=== PATIENT | female | born 1965 | race Caucasian/White ===

== ENCOUNTER 2019-07-26 06:14 | Day surgery (SDC) | payer OTHER, SELFPAY ==
[2019-07-21 11:09] VITALS: BMI 51.9
[2019-07-22 13:01] VITALS: BMI 49.4
[2019-07-26 06:31] VITALS: BP 140/103; PULSE 95; RESP 18; TEMP 36.3; O2SAT 96
[2019-07-26] MEDS: sodium chloride 0.9% 1,000 ML 30 ML IV (07:02)
--- NOTE | 2019-07-26 07:36 | P.ANESASSM_ITS ---
Pre-Anesthetic Assessment Pre-Anesthetic Assessment: Height/Weight: Height 1.57 m Weight 122.47 kg Temp Pulse Resp BP Pulse Ox 97.4 F L 95 18 140/103 96 07/26/19 06:31 07/26/19 06:31 07/26/19 06:31 07/26/19 06:31 07/26/19 06:31 Proposed Procedure: Operation Date: 07/26/19 07:35 Proposed Procedures p Colonoscopy 68214 Z86.010(Not Applicable) - Eder Cole MD Last intake: Intake Last Liquid Date 07/25/19 Last Liquid Time 23:30 Last Solid Date 07/24/19 Social: Social History: No alcohol and No tobacco Exam: Pre-Anes Outpt Exam: alert, oriented x 3, clear to auscultation bilaterally and regular rate & rhythm Airway: Submandibular: WNL Cervical ROM: WNL MP: 2 Dentition: Other (very poor dentation) History/ROS: No significant history except as noted Pulmonary: Pulmonary: PANIAGUA and Sleep apnea CV/HEM: CV/HEM: HTN : Comments: stones Hepatic: Hepatic: None reported GI: GI: None reported Comments: ladarius dz Metabolic: Metabolic: Morbid obesity and Thyroid Musc/skel: Musc/skel: Lower Back Pain and OA/DJD Neuropsych: Neuropsych: None reported Anesthetic Plan: ASA status: 3 Anesthesia: Anesthesia Evaluation and MAC Risk of > 500 ml blood loss (7ml/kg in children): No Meds/Allergies Current Medications: Current Medications Generic Name Dose Route Start Last Admin Trade Name Freq PRN Reason Stop Dose Admin Sodium Chloride 1,000 mls @ 30 ml s/hr 07/26/19 06:30 07/26/19 07:02 Sodium Chloride 0.9% IV 07/27/19 06:29 30 mls/hr .Q24H LUKASZ Administration PFSH Anesthesia PFSH: Medical History Cowdens disease Diverticulitis History of colon polyps Hypertension Hypothyroidism Surgical History History of 2 sections History of bilateral mastectomy History of colonoscopy (~04/2014) History of esophagogastroduodenoscopy (EGD) History of laparoscopic cholecystectomy History of thyroidectomy, total History of tonsillectomy History of total hysterectomy with bilateral salpingo-oophorectomy (BSO) Family History Family/Other Diabetes Denies family history of Anesthesia complication Bleeding disorder Social History Smoking and tobacco status: never smoked Second hand smoke exposure: No Alcohol intake: never Adopted: No Caregiver/support person: No Lives independently: Yes Household members: none Housing: Apartment Marital status: Single Current occupational exposures/hazards: No Pets and animals: No History of recent travel: No Sexually active: No Current gender identity: Female Agata/Yazidism: Yazidi Special agata needs: No Agree to transfusion: No Financial difficulty paying for basics: Not Applicable Data Anesthesia Cardiac Studies: No Data to Display
--- NOTE | 2019-07-26 07:57 | W.PM.OPSFHP ---
Same Day Surgery H&P Indication for Procedure/HPI DATE OF PROCEDURE: July 26, 2019 CHIEF COMPLAINT/INDICATIONFOR SURGICAL PROCEDURE: history of colon polyps PREOP DIAGNOSIS: colon polyps PLANNED PROCEDRUE: Operation Date: 07/26/19 07:35 Proposed Procedures p Colonoscopy 83561 Z86.010(Not Applicable) - Eder Cole MD Medications/Allergies* Home Medications Medication Instructions Recorded Confirmed Type gabapentin 300 mg capsule 300 mg PO BEDTIME 06/07/19 07/26/19 History levothyroxine 200 mcg capsule 200 mcg PO DAILY 06/07/19 07/26/19 History lisinopril 10 mg tablet 5 mg PO DAILY 06/07/19 07/26/19 History vitamin [id number] B1 100 mg-1 1 ml IM Q7D 06/07/19 07/26/19 History mg/mL intramuscular solution naproxen 500 mg PO DAILY PRN 07/21/19 07/26/19 History cyclobenzaprine 10 mg PO TID PRN 07/25/19 07/26/19 History Allergies/Adverse Reactions Allergy/AdvReac Type Severity Reaction Status Date / Time No Known Allergies Allergy Verified 06/07/19 15:15 Current Medications: Generic Name Dose Route Start Last Admin Trade Name Freq PRN Reason Stop Dose Admin Sodium Chloride 1,000 mls @ 30 mls/hr 07/26/19 06:30 07/26/19 07:02 Sodium Chloride 0.9% IV 07/27/19 06:29 30 mls/hr .Q24H LUKASZ Administration Pertinent History/Comorbid Conditions* Medical History (Updated 06/07/19 @ 15:28 by Eder Cole MD) Cowdens disease Diverticulitis History of colon polyps Hypertension Hypothyroidism Surgical History (Updated 06/07/19 @ 15:28 by Eder Cole MD) History of 2 sections History of bilateral mastectomy History of colonoscopy (~04/2014) History of esophagogastroduodenoscopy (EGD) History of laparoscopic cholecystectomy History of thyroidectomy, total History of tonsillectomy History of total hysterectomy with bilateral salpingo-oophorectomy (BSO) Family History (Updated 06/07/19 @ 15:20 by Diana Tobias RN) Diabetes Family/Other Denies family history of Anesthesia complication Bleeding disorder Social History Smoking and tobacco status: never smoked Second hand smoke exposure: No Alcohol intake: never Adopted: No Caregiver/support person: No Lives independently: Yes Household members: none Housing: Apartment Marital status: Single Current occupational exposures/hazards: No Pets and animals: No History of recent travel: No Sexually active: No Current gender identity: Female Agata/Zoroastrianism: Tenriism Special agata needs: No Agree to transfusion: No Financial difficulty paying for basics: Not Applicable Pertinent Exam Findings alert, oriented x 3 and regular rate & rhythm Recommendations Surgery/Procedure today Coding Level of Care Code Acute Parent Partner for Mayi Han
[2019-07-26 09:44] VITALS: BP 126/84; PULSE 99; RESP 16; TEMP 36.4; O2SAT 95
[2019-07-26 09:58] VITALS: BP 119/76; PULSE 86; RESP 18; O2SAT 95
== END 2019-07-26 10:30 | disposition home or self-care (01) ==
PROVIDERS: PCP Nurse Practitioner Family; Visit Provider Surgery
PROC: 0DJD8ZZ Inspection of Lower Intestinal Tract, Via Natural or Artificial Opening Endoscopic (ICD-10-PCS; CPT 45378; principal; 2019-07-26 07:30)
DX: K57.30 Diverticulosis of large intestine without perforation or abscess without bleeding (principal); D12.2 Benign neoplasm of ascending colon; D12.4 Benign neoplasm of descending colon; D12.5 Benign neoplasm of sigmoid colon; D12.3 Benign neoplasm of transverse colon; Z86.010 Personal history of colon polyps; I10 Essential (primary) hypertension; E03.9 Hypothyroidism, unspecified; E66.01 Morbid (severe) obesity due to excess calories; Z68.42 Body mass index [BMI] 45.0-49.9, adult; M19.90 Unspecified osteoarthritis, unspecified site; G47.30 Sleep apnea, unspecified
CPT/HCPCS: 45380; 45385; 12345; 88305; J2704; J7030

== ENCOUNTER → 2021-01-23 15:09 | Outpatient (BNVA) | payer BC, SELFPAY | PROVIDERS: PCP Nurse Practitioner Family; Visit Provider Nurse Practitioner | DX: M79.671 Pain in right foot (principal) | CPT/HCPCS: 73630 ==

== ENCOUNTER → 2021-02-04 10:02 | Outpatient (BNVA) | payer BC, SELFPAY | PROVIDERS: PCP Nurse Practitioner Family; Referring Provider Internal Medicine; Visit Provider Internal Medicine | DX: Q85.8 Other phakomatoses, not elsewhere classified (principal); E83.52 Hypercalcemia; E03.9 Hypothyroidism, unspecified; E04.1 Nontoxic single thyroid nodule | CPT/HCPCS: 99204 ==

== ENCOUNTER 2021-02-18 15:03 | Outpatient (CLI) | payer BC, SELFPAY ==
--- NOTE | 2021-02-18 | CT_ITS ---
WS: [id number] CT LUMBAR SPINE TECHNIQUE: Noncontrast CT of the lumbar spine with coronal and sagittal reformatted images.Some image s are limited due to beam hardening artifact CLINICAL INFORMATION: LBP COMPARISON: CT January 20, 2017 DLP: [id number] scans at [facility] use at least one of these dose optimization techniques: automated e xposure control; mA and/or kV adjustment per patient size (includes targeted exams where dose is matc hed to clinical indication); or iterative reconstruction. FINDINGS: Mild lumbar curve. Disc space narrowing worse at L2-L3 L3-L4 and L5-S1 vacuum disc phenomenon. Chroni c compression fracture with anterior wedging and endplate Schmorl's node L1 is unchanged since 2017. Disc space disease has progressed since 2017. L1-L2: Mild disc osteophytic ridging. Slight narrowing of the right subarticular recess. Foramen are patent. Mild facet arthropathy. L2-L3: Disc desiccation with vacuum disc phenomenon. Mild annular bulging with slight effacement of t he ventral thecal sac. Impingement on the left subarticular recess. Mild left and no significant righ t foraminal narrowing. Mild facet arthropathy. L3-L4: Disc desiccation with vacuum disc phenomenon. Mild disc bulging with mild central canal stenos is. Slight narrowing of the subarticular recess bilaterally. Left foraminal protrusion with moderate left foraminal narrowing. Right foramen is patent. Mild facet arthropathy. L4-L5: Mild disc bulging and osteophytic ridging. Moderate facet arthropathy. Mild central canal sten osis. Mild bilateral foraminal narrowing. This is slightly worse in the left. Ligamentum flavum hyper trophy. L5-S1: Central disc osteophyte protrusion slightly contacts the traversing S1 nerve roots bilaterally . Mild bilateral foraminal narrowing. Spinal canal is patent. Mild facet arthropathy. Right renal cyst. Visualized pelvic bony structures: Normal. Paravertebral soft tissues: Normal. CT/CT lumbar spine wo con* [id number] IMPRESSION: 1. Degenerative disc disease has progressed compared to 2017. This is progress ed at L2-3 L3-4 and L5-S1. 2. Chronic compression anterior wedging at L1 is unchanged. 3. Shallow right pericentral protrusion L1-L2 slightly impinges the right suba rticular recess and traversing right L2 nerve root. 4. Mild central canal stenosis L3-L4 L4-L5 due to mild disc bulging in combina tion with facet arthropathy ligamentum flavum flavum hypertrophy. 5. Shallow central disc osteophyte complex L5-S1 slightly contacts the herb ing S1 nerve roots bilaterally. 6. Shallow left subarticular protrusion L2-3 impinges the left subarticular re cess and traversing left L3 nerve root. Mild to left L2-3 foraminal narrowing. 7. Mild to moderate bilateral foraminal narrowing left L3-4 and bilateral L4-5 with small bilateral foraminal protrusions.
== END 2021-02-18 15:04 | disposition home or self-care (01) ==
PROVIDERS: PCP Nurse Practitioner; Visit Provider Nurse Practitioner
DX: M51.36 Other intervertebral disc degeneration, lumbar region (principal); M51.37 Other intervertebral disc degeneration, lumbosacral region; M48.56XA Collapsed vertebra, not elsewhere classified, lumbar region, initial encounter for fracture; M51.26 Other intervertebral disc displacement, lumbar region; M48.061 Spinal stenosis, lumbar region without neurogenic claudication; M25.78 Osteophyte, vertebrae
CPT/HCPCS: 72131

== ENCOUNTER 2021-03-07 12:51 | Outpatient (CLI) | payer BC, SELFPAY ==
--- NOTE | 2021-03-07 12:55 | XR_ITS ---
WS: [id number] LUMBAR SPINE FLEXION AND EXTENSION TECHNIQUE: 3 views of the lumbar spine: Lateral neutral, flexion, and extension views. CLINICAL INFORMATION: VERTEBROGENIC LOW BACK PAIN COMPARISON: None. FINDINGS: Slight retrolisthesis L1 on L2 and L2 on L3. Chronic anterior wedging at L1. Disc space narrowing wor se at L4-5 and L5-S1. No instability on flexion-extension. Moderate facet arthropathy L5-S1. Aortic c alcification. XR/XR lumbar spine f/e only [id number] IMPRESSION: 1. Slight retrolisthesis L1 on L2 and L2 on L3. 2. No instability on flexion-extension. 3. Disc space narrowing worse at L4-L5 and L5-S1. 4. Chronic anterior wedging at L1.
== END 2021-03-07 12:52 | disposition home or self-care (01) ==
PROVIDERS: PCP Nurse Practitioner; Visit Provider Nurse Practitioner
DX: M48.56XA Collapsed vertebra, not elsewhere classified, lumbar region, initial encounter for fracture (principal)
CPT/HCPCS: 72120

== ENCOUNTER 2021-06-07 11:40 | Outpatient (CLI) | payer BC, SELFPAY ==
--- NOTE | 2021-06-07 08:00 | US_ITS ---
WS: [id number] THYROID ULTRASOUND HISTORY: NODULE, prior thyroidectomy. COMPARISON: None available. No thyroid tissue mass is again noted in the thyroid bed. There are no solid or cystic masses. No lym phadenopathy. Submandibular glands are noted and normal. US/US thyroid [id number] IMPRESSION: Status post thyroidectomy. No recurrent or residual mass in the thyroid bed. No adenopathy.
== END 2021-06-07 11:41 | disposition home or self-care (01) ==
PROVIDERS: Visit Provider Internal Medicine
DX: E04.1 Nontoxic single thyroid nodule (principal); E89.0 Postprocedural hypothyroidism
CPT/HCPCS: 76536

== ENCOUNTER 2021-08-28 08:43 | Outpatient (CLI) | payer BC, SELFPAY ==
--- NOTE | 2021-08-28 08:45 | MR_ITS ---
WS: [id number] MRI CERVICAL SPINE NONCONTRAST TECHNIQUE: Sagittal T1, T2 and STIR imaging. Axial T2, gradient, and fiesta imaging. CLINICAL INFORMATION: pain COMPARISON: Outside CT cervical spine June 17, 2021 FINDINGS: Straightening of the normal cervical lordosis. Cervical alignment is unchanged from the outside CT. C ord signal is normal. Disc osteophyte complex worse at C5-C6 with slight impingement on the LEFT vent ral cervical cord and mild central canal stenosis. Incidental hemangioma T2 vertebral body. C2-C3: Normal. C3-C4: No significant disc bulging. Mild RIGHT foraminal narrowing. Mild facet arthropathy. Spinal ca nal is patent. C4-C5: No significant disc bulging. Osteophytic ridging. Mild RIGHT and no significant LEFT foraminal narrowing. Mild facet arthropathy. Spinal canal is patent. C5-C6: Shallow LEFT pericentral disc protrusion with slight indentation LEFT ventral cervical cord. M ild central canal stenosis. Mild bilateral foraminal narrowing. Mild facet arthropathy. C6-C7: RIGHT pericentral disc protrusion with slight contact RIGHT ventral cervical cord. Mild centra l canal stenosis. Foramen are patent. Mild facet arthropathy. C7-T1: Mild LEFT foraminal narrowing.. Spinal canal is patent. Mild facet arthropathy. Visualized brain stem structures: Cerebellar tonsillar ectopia. Prevertebral soft tissues: Normal. MR/MR cervical spin wo con* [id number] IMPRESSION: 1. Straightening of the normal cervical lordosis. Cord signal is normal. 2. LEFT pericentral disc osteophyte protrusion C5-C6 with mild central canal s tenosis. This is unchanged since the outside CT. 3. Tiny RIGHT pericentral disc protrusion C6-C7 with slight indentation RIGHT ventral cervical cord and mild central canal stenosis. 4. Mild bony foraminal narrowing worse at RIGHT C4-C5, LEFT C5-C6, and LEFT C 7-T1. 5. Hemangioma T2 vertebral body.
== END 2021-08-28 08:44 | disposition home or self-care (01) ==
PROVIDERS: Visit Provider Orthopaedic Surgery
DX: M50.222 Other cervical disc displacement at C5-C6 level (principal); M50.223 Other cervical disc displacement at C6-C7 level
CPT/HCPCS: 72141

== ENCOUNTER 2022-04-18 06:25 | Outpatient (CLI) | payer BC, SELFPAY ==
--- NOTE | 2022-04-18 06:30 | USCV_ITS ---
Tamika Caicedo Age: 57 Gender: F : 1965 Exam Date: 04/18/2022 06:39 Ordering Phys: Edgardo Rodriguez M.D ([email or web address]) Technologist: Exam [place] [facility] [place]ication: CHEST PAIN AND SHORTNESS OF BREATH BP: 145 / 80 HR: 81 Rhythm: Sinus Technical Quality: Adequate MEASUREMENTS (Male / Female) Normal Values 2D ECHO LV Diastolic Diameter PLAX 4.9 cm 4.2 - 5.9 / 3.9 - 5.3 cm LV Systolic Diameter PLAX 2.7 cm IVS Diastolic Thickness 1.0 cm 0.6 - 1.0 / 0.6 - 0.9 cm IVS Systolic Thickness 1.4 cm LVPW Diastolic Thickness 1.2 cm 0.6 - 1.0 / 0.6 - 0.9 cm LVPW Systolic Thickness 1.3 cm LVOT Diameter 2.1 cm LV Ejection Fraction 2D Teich 77.0 % LV Ejection Fraction MOD 2C 82.1 % LV Ejection Fraction 2C AL 81.9 % LA Diameter 4.4 cm Aorta at Sinotubular Diameter 2.6 cm IVC Diameter 1.5 cm M-MODE Aortic Annulus Diameter 3.3 cm LA Ao Ratio MM 1.4 MV E Point Septal Separation 0.9 cm DOPPLER AV Peak Velocity 172.0 cm/s LVOT Peak Velocity 123.0 cm/s AV Area Cont Eq vti 2.2 cm squared AV Area Cont Eq pk 2.4 cm squared MV Area PHT 3.1 cm squared Mitral E to A Ratio 1.0 MV E' Velocity 43.0 cm/s Mitral E to MV E' Ratio 8.0 Mitral E to LV E' Lateral Ratio 8.9 Mitral E to LV E' Septal Ratio 7.3 TR Peak Velocity 285.0 cm/s TR Peak Gradient 32.5 mmHg TV Peak E Velocity 102.0 cm/s Right Atrial Pressure 3.0 mmHg Pulmonary Artery Systolic Pressu 35.5 mmHg RV Acceleration Time 0.2 s FINDINGS Left Ventricle Normal left ventricular size, systolic function and wall thickness, with no regional wall motion abnormalities. Left ventricular ejection fraction is estimated at 60 %. Normal diastolic function. Right Ventricle Normal right ventricular size and systolic function. Right ventricular systolic pressure 35.5 mmHg. Right Atrium Normal right atrial size. Left Atrium Mildly increased left atrial size. Mitral Valve Structurally normal mitral valve. No mitral valve stenosis. Trace mitral valve regurgitation. Aortic Valve Structurally normal trileaflet aortic valve. No aortic valve stenosis. No aortic valve regurgitation. Tricuspid Valve Structurally normal tricuspid valve. No tricuspid valve stenosis. Trace tricuspid valve regurgitation. Pulmonic Valve Structurally normal pulmonic valve. No pulmonary valve stenosis. Trace pulmonary valve regurgitation. Pericardium No pericardial effusion. Prominent epicardial fat. Aorta Normal size aortic root and proximal ascending aorta. IVC Normal IVC dimension with >50% respiratory change of the inferior vena cava. CONCLUSIONS 1. Normal left ventricular size, systolic function and wall thickness, with no regional wall motion abnormalities. Left ventricular ejection fraction is estimated at 60 %. Normal diastolic function. 2. No significant valvular abnormality. 3. No significant change when compared to [facility] dated 07/26/2015. Nesha Jenkins MD (Electronically Signed) Final Date: 18 April 2022 15:17 S
== END 2022-04-18 06:26 | disposition home or self-care (01) ==
LOC: RAD 06:27
PROVIDERS: PCP Family Medicine; Visit Provider Internal Medicine
DX: R06.02 Shortness of breath (principal); R07.9 Chest pain, unspecified
CPT/HCPCS: 93306

== ENCOUNTER 2022-05-19 06:23 | Outpatient (CLI) | payer BC, SELFPAY ==
[2022-05-19 06:42] VITALS: BMI 50.8
--- NOTE | 2022-05-19 07:17 | ECG_ITS ---
[facility] Test Date: 2022-05-19 Pat Name: Tamika Caicedo Department: Room: Gender: Female Director Radio: : 1965 Requested By: Edgardo Rodriguez Order Number: [id number] Lobo MD: Laury Posey M.D. Interpretive Statements NAME OF STUDY: LEXISCAN SESTAMIBI STRESS TEST INDICATION: Chest Pain, PROCEDURE: At the baseline, the EKG revealed normal sinus rhythm with a poor R wave progression. Diffuse nonspecific T wave changes. The baseline heart was 79 bpm with a blood pressue of 128/101 mm of Hg Lexiscan was infused over a period of 20 seconds. A total of 0.4 milligrams of Lexiscan was infused. The stress phase was continued for a total of 5 minutes. Heart rate at the end of the stress phase was 87 bpm with a blood pressure 130/96 mm of Hg. The EKG at the peak infusion revealed no significant changes. Sestamibi was injected 20 seconds after the Lexiscan infusion. Heart rate at the end of the recovery phase was 84 bpm with a blood pressure of 139/85 mm of Hg. CONCLUSION: 1. No significant EKG changes with the LexiScan infusion 2. No LexiScan induced chest pain or cardiac arrhythmia 3. Normal blood pressure and heart rate response 4. Sestamibi/sestamibi perfusion scan pending; see separate report. Electronically Signed On 05-21-2022 0:25:35 CLAIMS ANALYST by Laury Posey M.D. [email or web address]
--- NOTE | 2022-05-19 07:18 | NMCV_ITS ---
NM pamela perf SPECT r/s* [id number] Tamika Caicedo Age: 57 Gender: F : 1965 Exam Date: 05/19/2022 07:47 Ordering Phys: Edgardo Rodriguez M.D ([email or web address]) Technologist: ROSEMARY Timmons Exam Location: [facility] Indications: CHEST PAIN STRESS TEST [facility] IMAGE PROTOCOL Rest/Stress 1 Lexiscan Day Radiopharmaceutical Dose (mCi) Administration Site Administered by Rest: Tc-99m 10.8 IV ROSEMARY Ceballos Sestamibi Stress:Tc-99m 33.0 IV ROSEMARY Ceballos Sestamibi Rest: 19-May-2022 60 Discovery 630 Stress: 19-May-2022 30 Discovery 630 0.4mg Lexiscan. Images obtained in supine and prone position. SPECT RESULTS Technical Quality: Excellent Raw Data Analysis: Breast attenuation Image Corrections: No attenuation or motion correction applied Summed Stress Score: 3 Summed Rest Score: 0 Summed Difference Score: 3 PERFUSION FINDINGS A small area of moderately decreased tracer uptake was noted in the mid anterior and anterolateral region with a significant reversibility in the supine position. However with the prone imaging no significant perfusion abnormalities were noted FUNCTIONAL RESULTS (calculated via Gated SPECT) Stress Image LV EF (%): 76 Stress EDV (mL):96 TID: 1.2 Stress ESV (mL):23 FUNCTIONAL FINDINGS: Segmental wall motion analysis revealing no gross wall motion abnormalities IMPRESSIONS 1. Myocardial perfusion imaging revealing a small area of reversible defect in the mid anterior and anterolateral region suggesting ischemia in the distribution of the left anterior descending artery. However because of the inconsistency with the prone imaging, the reliability is questionable. Elevated transient ischemic dilatation ratio may suggest endocardial ischemia. However the positive predictive value of this finding is low. Clinical correlation is recommended 2. Normal LV ejection fraction 76%. 3. LV wall motion analysis revealing no gross wall motion abnormalities. 4. Normal LV volume No similar previous studies are available for comparison Dr Laury Posey MD [facility] (Electronically Signed) Final Date: 19 May 2022 17:21 S
[2022-05-19] MEDS: regadenoson 0.4 Mg/5 ml Syringe IVP (08:59)
[2022-05-19] MEDS: ondansetron 2 mg/ML SDV 2 mL 4 MG IVP (08:59)
[2022-05-19 09:01] VITALS: BP 139/85; PULSE 84
== END 2022-05-19 06:24 | disposition home or self-care (01) ==
LOC: CDL 06:28
PROVIDERS: PCP Nurse Practitioner Family; Visit Provider Internal Medicine
DX: R07.9 Chest pain, unspecified (principal)
CPT/HCPCS: 36415; 78452; 93017; 96374; 96375; A9500; J2405; J2785

== ENCOUNTER 2022-08-04 10:09 | Outpatient (CLI) | payer BC, SELFPAY ==
[2022-08-04 10:34] LABS: Basophils % 0.7 %; Eosinophils # 0.4 10^3/uL (0.0-0.8); Eosinophils % 6.8 %; Hematocrit 44.4 % (37.0-47.0); Lymphocytes # 1.4 10^3/uL (0.8-4.8); Lymphocytes % 23.9 %; Mean Corpuscular HGB Conc 31.5 g/dL (30.0-36.0); Mean Corpuscular Hemoglobin 30.2 pg (28.0-34.0); Mean Corpuscular Volume 95.9 fl (81-99); Mean Platelet Volume 9.8 fL (7.4-10.4); Monocytes # 0.4 10^3/uL (0.2-0.9); Monocytes % 7.2 %; Neutrophils # 3.66 10^3/uL (1.8-7.7); Neutrophils % 61.1 %; Nucleated Red Blood Cells % 0 %; Platelet Count 236 10^3/cmm (130-400); Red Blood Count 4.63 10^6/uL (4.1-5.3); Red Cell Distribution Width 12.9 % (12.1-15.1)
[2022-08-04 10:45] LABS: INR 0.95 (0.83-1.21)
[2022-08-04 10:51] LABS: Anion Gap 15.6 (5-19); Blood Urea Nitrogen 21 mg/dL (6-20); Calcium 9.3 mg/dL (8.5-10.5); Carbon Dioxide 25 mmol/L (22-29); Chloride 107 mmol/L (98-107); Glomerular Filtration Rate 73.9 mL/min (90-130); Glucose 114 mg/dL (65-115); Osmolality Calculated 300 mOsm/kg (285-295); Potassium 4.6 mmol/L (3.5-5.1); Sodium 143 mmol/L (136-145)
== END 2022-08-04 10:10 | disposition home or self-care (01) ==
LOC: LAB 10:17
PROVIDERS: PCP Nurse Practitioner Family; Visit Provider Internal Medicine
DX: R07.9 Chest pain, unspecified (principal); R58 Hemorrhage, not elsewhere classified; R94.39 Abnormal result of other cardiovascular function study
CPT/HCPCS: 36415; 80048; 85025; 85610

== ENCOUNTER 2022-08-05 06:01 | Outpatient (CLI) | payer BC, SELFPAY ==
[2022-08-05] VITALS (15 sets, daily range): BP systolic 116–163; BP diastolic 72–118; PULSE 81–90; RESP 15–28; TEMP 37; O2SAT 91–97; BMI 49.0
--- NOTE | 2022-08-05 06:00 | XACV_ITS ---
Exam Room: 2 Ht: 157 cm Wt: 122 kg BSA: 2.38 m2 Gender: Female : 1965 Any Known Allergies: No known allergies Exam Priority: Routine Procedure(s): Procedure Description: Diagnostic procedure Procedure Description: Left Heart Catheterization Procedure Description: Left ventriculography Procedure Description: Miscellaneous Procedure Description: Angio-Seal Procedure Description: Coronary Angiography Diagnostic Cath Status: Elective Diagnostic Findings * Indication: 57-year-old woman with past medical history of hypothyroidism has been having worsening dyspnea on exertion. Had a stress test that showed ischemia in LAD territory. Plan for coronary angiogram with possible percutaneous coronary intervention. * No significant disease noted in the Left Main, Left Anterior Descending, Right, or Circumflex coronary arteries. * Coronary angiography shows right dominance. Conclusions 1. No significant disease noted in the Left Main, Left Anterior Descending, Right, or Circumflex coronary arteries. 2. Normal left ventricular systolic function. Ejection fraction of 60%. Recommendations * Aggressive risk factor modification. * Outpatient cardiology follow up in 4 weeks. Interventional RX Recommendation: medical therapy and/or counseling Diagnostic RX Recommendation: medical therapy and/or counseling Anticoagulation: Heparin Ventriculography Ejection Fraction: 60.0 % Pressures Phase:Rest AO : 124 / 96 ( 110 ) @ 8:33:00 AM 145 / 89 ( 115 ) @ 8:40:00 AM 126 / 90 ( 108 ) @ 8:40:00 AM 135 / 82 ( 108 ) @ 8:48:00 AM 143 / 85 ( 113 ) @ 8:48:00 AM LV : 136 / -14 / 11 @ 8:47:00 AM 136 / -10 / 19 @ 8:48:00 AM 136 / -4 / 15 @ 8:48:00 AM Valves Phase:DefaultPhase AV : 1.0 @ 7:58:01 AM 1.0 @ 7:58:01 AM AV Mean Gradient: 0.0 @ 7:58:01 AM Clinical Evaluation EBL: 5mL-10mL Procedural Details Procedure Consent Obtained. Current Diagnosis : Chest Pain. Pre-Procedure Time Out. Identified patient by full name and date of as verbalized by the patient/guarantor. Does the consent match the physician's order: Yes. Accurate & Complete Informed Consent: Yes. Inpatient/Outpatient History & Physical on Chart: Yes. If H&P is completed, is and addenduem needed: No; If yes, is the addendum complete: N/A. Visualize and Verify Site with Patient/Guarantor: N/A. Relevant Radiology Images available: Yes. The risks, benefits, and alternatives of sedation and/or procedure were discussed by physician. The patient agrees to continue. Procedure started. [facility] Clinical Fraility Score: 3: Managing Well. 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 Chest Pain Symptom Assessment: Typical Angina Symptoms. Correct patient, site and procedure confirmed by cath team. Current diagnosis: Chest Pain. PERRLA. Strong, equal hand food quality tester bilaterally. Lungs clear x 5 lobes. A 20 gauge IV was started in the right anticubital using aseptic technique. IV Fluids: 0.9% NaCl at KVO. 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 Pre Procedural Pulses: bilateral radial was 3+. Pre Procedural Pulses: right posterior tibial was Doppled. Pre Procedural Pulses: left dorsalis pedis was 1+. Pre Procedural Pulses: right posterior tibial was 1+. Pre Procedural Pulses: left posterior tibial was 2+. Oxygen started at 2liters/min via nasal canula. right groin was prepped with chloroprep then draped in the usual sterile fashion. right radial was prepped with chloroprep then draped in the usual sterile fashion. Physician notified. Baseline sample Acquired. HR: 85 BPM. Physician arrived. Physician scrubbed in. Immediate Pre-Procedure Time Out. Correct Patient: Yes; Correct Procedure: Yes; Correct Site: Yes; Correct Patient Position: Yes; Correct Supplies: Yes; Dried Flammable Prep: Yes; Blood Products Available: N/A;. Lidocaine 1% infiltrated to the right radial. Arterial access obtained. Wire and needle removed. An attempt to gain access to the right radial artery was unsuccessful. Manual pressure was held as needed to stop the bleeding. Lidocaine 1% infiltrated to the right groin. TR band placed. Hemostasis obtained. Arterial access obtained with micropuncture set. A 5 zimbabwean JL4 catheter in over wire. Multiple views taken of left coronary artery. Catheter removed over the exchange wire. A 5 zimbabwean JR4 catheter in over wire. Catheter removed over the exchange wire. A 5 zimbabwean 3DRC catheter in over wire. Multiple views taken of right coronary artery. Catheter removed over the exchange wire. A 5 zimbabwean AL1 catheter in over wire. Multiple views taken of right coronary artery. Catheter removed over the exchange wire. A 5 zimbabwean Angled Pig catheter in over wire. EDP Sample taken: LV 136/-15,11; HR: 91 BPM; SpO2: 99%. LV gram performed in SHEN @ 10 mL/second for a total of 30 mL. EDP Sample taken: LV 136/-10,19; HR: 81 BPM; SpO2: 100%. Pullback taken: LV 136/-5,15; AO 135/82(108); Mean: 0mmHg, Peak to Peak: 1mmHg, SEP: 7sec/min; HR: 82 BPM; SpO2: 99%. Catheter removed over the exchange wire. A Right femoral angiogram was performed to determine safe placement of closure device. Lidocaine 1% infiltrated to the right groin. A Angio-Seal VIP (St[facility] Zhou) was successful obtaining hemostatsis at the Right Femoral artery insertion site. Post Procedure: Pulses reassessed and unchanged. PERRLA. Strong, equal hand food quality tester bilaterally. No VTE prophylaxis required. Medication's Wasted: Nitro = 49.8 mg. Medication's Wasted: Heparin = 1000 units. Total IV fluids: 53 mL. Complications: None. Estimated blood loss: 5mL-10mL. Responsiveness - Normal response to verbal stimuli; alert and oriented, PERRLA. Airway - Unaffected, no intervention required; spontaneous ventilation. Circulation: W/N/L, pulses unchanged. Nausea/Vomiting: No. Procedure completed. Patient transferred by bed to CPRU. Vital chart was stopped. Access Site Site: Right Femoral artery Sheath Size: 6 Fr Hemostasis Method: Angio-Seal VIP ([facility] Zhou) Hemostasis Success: Successful Procedure Medications Start: 7:15 AM Stop: 7:15 AM Medication: Versed Amount: 1 mg Route: I.V. Start: 7:15 AM Stop: 7:15 AM Medication: Fentanyl Amount: 50 mcg Route: I.V. Start: 7:21 AM Stop: 7:21 AM Medication: Versed Amount: 1 mg Route: I.V. Start: 7:23 AM Stop: 7:23 AM Medication: Nitrogylcerin Amount: 200 mcg Route: I.A. Start: 7:29 AM Stop: 7:29 AM Medication: Fentanyl Amount: 25 mcg Route: I.V. Start: 7:50 AM Stop: 7:50 AM Medication: Fentanyl Amount: 25 mcg Route: I.V. I, the attending physician, have reviewed and verified all procedure medications. Yes, all medications given per verbal order History/Risk Factors Hypertension: Yes Dyslipidemia: No Peripheral Arterial Disease (PAD): No Myocardial Infarction (HI): No Obesity: No Renal Disease: No Prior Interventions PCI: No CABG: No Valve Surgery: No Report Signatures Finalized by Edgardo Rodriguez MD on 08/07/2022 06:04 PM
[2022-08-05] MEDS: aspirin 325 mg Tablet PO (06:52)
[2022-08-05] MEDS: diphenhydrAMINE 50 mg Capsule PO (06:52)
--- NOTE | 2022-08-05 07:19 | P.HP_ITS ---
Same Day Surgery H&P Indication for Procedure/HPI DATE OF PROCEDURE: August 05, 2022 CHIEF COMPLAINT/INDICATIONFOR SURGICAL PROCEDURE: Dyspnea on exertion/abnormal stress test PREOP DIAGNOSIS: Dyspnea on exertion/abnormal stress test PLANNED PROCEDURE: Operation Date: 08/05/22 07:00 Proposed Procedures p [facility] 71597,R94.39, R07.9(Left) - Edgardo Rodriguez M.D Possible percutaneous coronary intervention 57-year-old woman with past medical history of hypothyroidism has been having worsening dyspnea on exertion. Had a stress test that showed ischemia in LAD territory. Plan for coronary angiogram with possible percutaneous coronary intervention. Medications/Allergies* Home Medications Medication Instructions Recorded Confirmed Type levothyroxine 200 mcg capsule 200 mcg PO DAILY 06/07/19 08/05/22 History cyclobenzaprine 10 mg tablet 10 mg PO TID PRN Muscle Spasm 07/25/19 08/05/22 History hydrocodone 5 mg-acetaminophen 325 1 tab PO Q4H PRN Pain 11/06/21 08/05/22 History mg tablet zonisamide 100 mg capsule 100 mg PO DIRECTED 11/06/21 08/05/22 History Allergies/Adverse Reactions Allergy/AdvReac Type Severity Reaction Status Date / Time No Known Allergies Allergy Verified 03/12/22 15:40 Current Medications: Generic Name Dose Route Start Last Admin Trade Name Freq PRN Reason Stop Dose Admin Sodium Chloride 1,000 mls @ 50 mls/hr 08/05/22 06:00 08/05/22 06:52 Sodium Chloride 0.9% IV 08/06/22 01:59 Not Given .Q20H ONE Pertinent History/Comorbid Conditions* Medical History (Updated 03/16/22 @ 12:56 by Edgardo Rodriguez M.D) [place] disease Diverticulitis History of colon polyps Hypertension Hypothyroidism Surgical History (Updated 07/26/19 @ 09:57 by Eder Cole MD) History of 2 sections History of bilateral mastectomy History of colonoscopy (07/26/19) repeat in 3 years History of esophagogastroduodenoscopy (EGD) History of laparoscopic cholecystectomy History of thyroidectomy, total History of tonsillectomy History of total hysterectomy with bilateral salpingo-oophorectomy (BSO) Family History (Updated 06/07/19 @ 15:20 by Diana Pace, RN) Diabetes Family/Other Denies family history of Anesthesia complication Bleeding disorder Social History Smoking and tobacco status: never smoked Second hand smoke exposure: No Alcohol intake: never Substance/Drug Use: never Adopted: No Caregiver/support person: No Lives independently: Yes Household members: none Housing: Apartment Marital status: Single Current occupational exposures/hazards: No Pets and animals: No Sexually active: No Do you think of yourself as: Straight/Heterosexual Current gender identity: Female Agata/Scientologist: Evangelical Special agata needs: No Agree to transfusion: No Financial difficulty paying for basics: Not Applicable Pertinent Exam Findings alert, oriented x 3, clear to auscultation bilaterally and regular rate & rhythm Conscious Sedation Assessment PATIENT ASSESSED PRIOR TO SEDATION, WITH NO CHANGE NOTED: Yes AIRWAY EVAL/ANESTHESIA PLAN: normal airway, ASA III, Local Anesthesia, Risks, benefits & alternatives of sedation and/or procedure discussed and Patient agrees to continue as planned Recommendations Surgery/Procedure today (Left heart cath with possible percutaneous coronary intervention) Coding Level of Care Code Acute Code for Chg Fwd Diagnoses
--- NOTE | 2022-08-05 08:27 | PC.NURSE ---
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 pt to be transferred to [facility] after 30 minutes of recovery here in CPRU. pt alert and oriented and complains of some numbness on the right hand. nurse educated pt on why that is. TR band on right wrist with no bruising or hematoma noted. right femoral access with no brusing or hematoma noted as well. dressing dry and intact. pt educated on restrictions on both sites. pt stated understanding. pt placed on vitals machine and will be monitored per protocol. [facility] nurse already called with report.
--- NOTE | 2022-08-05 14:37 | PC.NURSE ---
Patients IV removed at 14:30, tolerated well. Patient given written and verbal education on angioseals, post cath care, and discharge instructions, patient verbalized understanding. Patient taken to parking lot via wheelchair. patient left facility with daughter at 14:36.
== END 2022-08-05 14:36 | disposition home or self-care (01) ==
LOC: CCL 06:06 → CSU 08:36
PROVIDERS: PCP Nurse Practitioner Family; Visit Provider Internal Medicine
DX: R94.39 Abnormal result of other cardiovascular function study (principal); R06.00 Dyspnea, unspecified; E03.9 Hypothyroidism, unspecified; I10 Essential (primary) hypertension
CPT/HCPCS: 36415; 93458; 96361; 96365; 99152; 99153; C1760; C1769; C1887; C1894; G0269; J1644; J2250; J3010; J3490; J7030; Q0163; Q9967

== ENCOUNTER → 2022-08-12 16:13 | Outpatient (BNVA) | payer BC, SELFPAY | PROVIDERS: PCP Nurse Practitioner Family; Visit Provider Nurse Practitioner Family | DX: R07.9 Chest pain, unspecified (principal) | CPT/HCPCS: 36415; 80048 ==

== ENCOUNTER 2022-08-14 13:18 | Outpatient (CLI) | payer BC, MEDICAID, SELFPAY ==
--- NOTE | 2022-08-14 13:30 | USCV_ITS ---
Tamika Caicedo Age: 57 Gender: F : 1965 Exam Date: 08/14/2022 13:33 Ordering Phys: Jonna Osei Technologist: Vilma Gayle [place] [facility] [place] Indication: HISTORY: PROCEDURES: Bilateral duplex Venous Insufficiency study of the Deep and Superficial systems was carried out according to normal protocol with the patient in supine positon for deep system and dependent position for the superficial system. FINDINGS: All deep veins demonstrated compressibility without evidence of intraluminal thrombus or increased echogenicity. Spectral analysis of Doppler signals demonstrates normal response to compression maneuvers indicating patency without obstruction. Reflux determinations were made with the patient in the dependent position, the weight being on the contralateral leg. Vein measurements and reflux times are listed below were applicable. No notable reflux was seen at this time. The veins were found to be easily compressible with spontaneous blood flow. Non pulsatile flow pattern. CONCLUSIONS No evidence of thrombosis in the above mentioned identifiable veins. No significant venous reflux Dr Laury Posey MD [facility] (Electronically Signed) Final Date: 08 September 2022 17:07 S
== END 2022-08-14 13:19 | disposition home or self-care (01) ==
PROVIDERS: PCP Nurse Practitioner Family; Visit Provider Nurse Practitioner Family
DX: M79.604 Pain in right leg (principal); M79.605 Pain in left leg; R60.0 Localized edema; Q85.82 Other Cowden syndrome
CPT/HCPCS: 93970

== ENCOUNTER 2023-03-06 12:34 | Emergency (ER) | payer BC, MEDICAID, SELFPAY ==
[2023-03-06 12:49] VITALS: BP 164/92; PULSE 96; RESP 16; TEMP 36.9; O2SAT 95; BMI 50.3
--- NOTE | 2023-03-06 12:54 | XRR_ITS ---
PROCEDURE INFORMATION: Exam: XR Chest Exam date and time: 03/06/2023 1:37 PM Age: 58 years old Clinical indication: Shortness of breath; Additional info: SOB TECHNIQUE: Imaging protocol: Radiologic exam of the chest. Views: 1 view. COMPARISON: CR XR chest 2V* [id number] 06/09/2018 9:27 AM FINDINGS: Tubes, catheters and devices: Overlying breast implant/prosthesis noted. Lungs: Pulmonary vessels are mildly prominent mid to lower lungs, similar to previous exam of 2019. No focal infiltrate or consolidation. Pleural spaces: No significant pleural effusion or pneumothorax. Heart/Mediastinum: Upper limits of normal cardiac size with single-view portable chest. Bones/joints: Visualized osseous structures show no acute abnormality. XR/XR chest 1V portable [id number] IMPRESSION: Mild prominence pulmonary vessels mid to lower lungs, similar to prior exam. This could indicate mild pulmonary vascular congestion. No acute findings otherwise.
[2023-03-06 13:31] LABS: Basophils % 0.6 %; Eosinophils # 0.4 10^3/uL (0.0-0.8); Eosinophils % 5.4 %; Hematocrit 42.8 % (36-47); Lymphocytes # 1.4 10^3/uL (0.8-4.8); Lymphocytes % 19.8 %; Mean Corpuscular HGB Conc 32.5 g/dL (30-55); Mean Corpuscular Hemoglobin 31.7 pg (27-33); Mean Corpuscular Volume 97.7 fl (85-98); Mean Platelet Volume 9.8 fL (7.4-10.4); Monocytes # 0.6 10^3/uL (0.2-0.9); Monocytes % 8.1 %; Neutrophils % 65.4 %; Nucleated Red Blood Cells % 0 %; Platelet Count 192 10^3/cmm (157-399); Red Blood Count 4.38 10^6/uL (3.85-5.65); Red Cell Distribution Width 12.7 % (12.1-15.1); White Blood Count 6.88 10^3/uL (3.29-11.43)
[2023-03-06 14:00] LABS: Alanine Aminotransferase 15 U/L (0-33); Alkaline Phosphatase 58 U/L (35-105); Anion Gap 14.3 (5-19); Aspartate Amino Transferase 17 U/L (0-32); Blood Urea Nitrogen 16 mg/dL (6-20); Carbon Dioxide 24 mmol/L (22-29); Chloride 108 mmol/L (98-107); Globulin 2.6 g/dL (1.3-4.6); Glomerular Filtration Rate 73.7 mL/min (90-130); Glucose 116 mg/dL (65-115); NT Pro B Type Natriuretic Pept 70 pg/mL (0-125); Osmolality Calculated 296 mOsm/kg (285-295); Potassium 4.3 mmol/L (3.5-5.1); Sodium 142 mmol/L (136-145); Total Bilirubin 0.5 mg/dL (0.15-1.2); Total Protein 6.6 g/dL (6.6-8.7)
== END 2023-03-06 14:57 | disposition left against medical advice (07) ==
LOC: ER 12:42
PROVIDERS: Physician Assistant; Emergency Provider Family Medicine; PCP Nurse Practitioner Family
DX: Z53.21 Procedure and treatment not carried out due to patient leaving prior to being seen by health care provider (principal)
CPT/HCPCS: 71045; 80053; 83880; 85025

== ENCOUNTER → 2023-06-04 09:08 | Outpatient (BNVA) | payer BC, MEDICAID, SELFPAY | PROVIDERS: PCP Nurse Practitioner Family; Referring Provider Nurse Practitioner Family; Visit Provider Student in an Organized Health Care Education/Training Program | DX: R22.33 Localized swelling, mass and lump, upper limb, bilateral (principal); Q85.82 Other Cowden syndrome | CPT/HCPCS: 73130 ==

== ENCOUNTER → 2023-07-30 15:57 | Outpatient (BNVA) | payer BC, MEDICAID, SELFPAY | PROVIDERS: PCP Nurse Practitioner Family; Visit Provider Orthopaedic Surgery | DX: M54.50 Low back pain, unspecified (principal) | CPT/HCPCS: 72110; 80053; 81001; 85025; 87077; 87086; 87186 ==

== ENCOUNTER → 2023-08-17 10:57 | Outpatient (BNVA) | payer BC, MEDICAID, SELFPAY | PROVIDERS: PCP Nurse Practitioner Family; Visit Provider Family Medicine | DX: Z01.818 Encounter for other preprocedural examination (principal); R94.31 Abnormal electrocardiogram [ECG] [EKG] | CPT/HCPCS: 93005 ==

== ENCOUNTER 2023-08-19 06:06 | Day surgery (SDC) | payer BC, MEDICAID, SELFPAY ==
[2023-08-19] VITALS (7 sets, daily range): BP systolic 135–163; BP diastolic 91–104; PULSE 82–92; RESP 16–20; TEMP 36.2–36.7; O2SAT 95–98; BMI 49.4
[2023-08-19] MEDS: scopolamine 1.5 Patch 1 PATCH TRANSDERMA (06:43)
[2023-08-19] MEDS: ketorolac 30 mg/mL INJ IVP (06:43)
[2023-08-19] MEDS: acetaminophen 1,000 MG/100 ML PIGGYBACK 400 MG IV (06:43)
[2023-08-19] MEDS: sodium chloride 0.9% 1,000 ML 30 ML IV (06:44)
--- NOTE | 2023-08-19 06:51 | ANES.PREANE2 ---
Pre-Anesthetic Assessment Height/Weight: Height 1.57 m Weight 122.47 kg Temp Pulse Resp BP Pulse Ox O2 Del Method 97.2 F L 82 18 151/104 98 Room Air 08/19/23 06:44 08/19/23 06:44 08/19/23 06:44 08/19/23 06:44 08/19/23 06:44 08/19/23 06:44 Operation Date: 08/19/23 07:40 Proposed Procedures p Excision Mass/Lesion Upper Extremity/Right middle finger mass excision and right dorsal hand mass excision(Right) - Pio Ponce, Familial anesthetic complications: None Was Beta Wesley taken within 24 hours: N/A Was Clonidine taken within 24 hours: N/A Last intake: Intake Last Liquid Date 08/18/23 Last Liquid Time 18:00 Last Solid Date 08/18/23 Last Solid Time 18:00 Social No alcohol and No tobacco Exam alert, oriented x 3, clear to auscultation bilaterally and regular rate & rhythm Airway Mallampati: Class II Dentition: chipped and other (very poor dentition, black, multiple missing) Pulmonary Sleep Apnea CV/HEM Hypertension Metabolic Diabetes Mellitus, Hyperlipidemia, Morbid Obesity and Thyroid Disease Anesthetic Plan ASA status: 3 Anesthesia: MAC Risk of > 500 ml blood loss (7ml/kg in children): No Medications/Allergies Home Medications Medication Instructions Recorded Confirmed Last Taken Type cyclobenzaprine 10 mg tablet 10 mg PO TID PRN Muscle Spasm 07/25/19 08/19/23 08/18/23 History hydrocodone 5 mg-acetaminophen 325 1 tab PO Q4H PRN Pain 11/06/21 08/19/23 08/18/23 History mg tablet zonisamide 100 mg capsule 100 mg PO DIRECTED 11/06/21 08/19/23 08/18/23 History hydrochlorothiazide 12.5 mg tablet 12.5 mg PO DAILY 08/12/22 08/19/23 08/18/23 History simvastatin 10 mg tablet 10 mg PO DAILY 08/12/22 08/19/23 08/18/23 History amoxicillin 500 mg-potassium 1 tab PO BID #14 tabs 08/17/23 08/19/23 08/18/23 Rx clavulanate 125 mg tablet (Augmentin) bisacodyl 5 mg tablet,delayed 10 mg PO DAILY PRN stool softne 08/17/23 08/19/23 08/18/23 History release levothyroxine 125 mcg tablet 125 mcg PO DAILY 08/17/23 08/19/23 08/18/23 History Allergies Allergy/AdvReac Type Severity Reaction Status Date / Time tape adhesive Allergy rash Uncoded 08/19/23 06:30 Current Medications Generic Name Dose Route Start Last Admin Trade Name Jonathanq PRN Reason Stop Dose Admin Sodium Chloride 1,000 mls @ 30 mls/hr 08/19/23 06:30 08/19/23 06:44 Sodium Chloride 0.9% IV 08/20/23 06:29 30 mls/hr .Q24H LUKASZ Administration PFSH Anesthesia Medical History Bilateral leg pain [place] disease History of colon polyps Diverticulitis Hypothyroidism Hypertension Surgical History History of total hysterectomy with bilateral salpingo-oophorectomy (BSO) History of bilateral mastectomy History of thyroidectomy, total History of tonsillectomy History of laparoscopic cholecystectomy History of 2 sections History of colonoscopy (07/26/19) repeat in 3 years History of esophagogastroduodenoscopy (EGD) Family History Family/Other Diabetes Denies family history of Anesthesia complication Bleeding disorder Social History Smoking and tobacco/nicotine status: never used tobacco/nicotine Second hand smoke exposure: No Alcohol intake: never Substance/Drug Use: never Adopted: No Caregiver/support person: No Lives independently: Yes Household members: none Housing: Apartment Marital status: Single Current occupational exposures/hazards: No Pets and animals: No Sexually active: No Do you think of yourself as: Straight/Heterosexual Current gender identity: Female Agata/Yazdanism: Adventist Special agata needs: No Agree to transfusion: No Data Anesthesia Cardiac Studies: Echocardiogram 04/18/22 Sestamibi Stress Test (Cardiology) 05/19/22
--- NOTE | 2023-08-19 07:03 | P.HP_ITS ---
Same Day Surgery H&P Indication for Procedure/HPI DATE OF PROCEDURE: August 19, 2023 CHIEF COMPLAINT/INDICATIONFOR SURGICAL PROCEDURE: Right middle finger mass, right dorsal hand mass PREOP DIAGNOSIS: Right middle finger mass, right dorsal hand mass PLANNED PROCEDURE: Operation Date: 08/19/23 07:40 Proposed Procedures p Excision Mass/Lesion Upper Extremity/Right middle finger mass excision and right dorsal hand mass excision(Right) - Pio Serra DO Medications/Allergies* Home Medications Medication Instructions Recorded Confirmed Type cyclobenzaprine 10 mg tablet 10 mg PO TID PRN Muscle Spasm 07/25/19 08/19/23 History hydrocodone 5 mg-acetaminophen 325 1 tab PO Q4H PRN Pain 11/06/21 08/19/23 History mg tablet zonisamide 100 mg capsule 100 mg PO DIRECTED 11/06/21 08/19/23 History hydrochlorothiazide 12.5 mg tablet 12.5 mg PO DAILY 08/12/22 08/19/23 History simvastatin 10 mg tablet 10 mg PO DAILY 08/12/22 08/19/23 History bisacodyl 5 mg tablet,delayed 10 mg PO DAILY PRN stool softne 08/17/23 08/19/23 History release levothyroxine 125 mcg tablet 125 mcg PO DAILY 08/17/23 08/19/23 History Allergies/Adverse Reactions Allergy/AdvReac Type Severity Reaction Status Date / Time tape adhesive Allergy rash Uncoded 08/19/23 06:30 Current Medications: Generic Name Dose Route Start Last Admin Trade Name Freq PRN Reason Stop Dose Admin Sodium Chloride 1,000 mls @ 30 mls/hr 08/19/23 06:30 08/19/23 06:44 Sodium Chloride 0.9% IV 08/20/23 06:29 30 mls/hr .Q24H LUKASZ Administration Pertinent History/Comorbid Conditions* Medical History (Updated 07/30/23 @ 16:38 by Kimo Talavera DO) Bilateral leg pain [place] disease History of colon polyps Diverticulitis Hypothyroidism Hypertension Surgical History (Updated 07/26/19 @ 09:57 by Eder Cole MD) History of total hysterectomy with bilateral salpingo-oophorectomy (BSO) History of bilateral mastectomy History of thyroidectomy, total History of tonsillectomy History of laparoscopic cholecystectomy History of 2 sections History of colonoscopy (07/26/19) repeat in 3 years History of esophagogastroduodenoscopy (EGD) Family History (Updated 06/07/19 @ 15:20 by Diana Tobias RN) Diabetes Family/Other Denies family history of Anesthesia complication Bleeding disorder Social History Smoking and tobacco/nicotine status: never used tobacco/nicotine Second hand smoke exposure: No Alcohol intake: never Substance/Drug Use: never Adopted: No Caregiver/support person: No Lives independently: Yes Household members: none Housing: Apartment Marital status: Single Current occupational exposures/hazards: No Pets and animals: No Sexually active: No Do you think of yourself as: Straight/Heterosexual Current gender identity: Female Agata/Anabaptist: Religious Special agata needs: No Agree to transfusion: No Pertinent Exam Findings alert, oriented x 3, operative site marked and procedure specific exam findings Please refer to detailed orthopedic examination on 07/14/2019 for detailed below: Bilateral hands Examination of the bilateral hands have multiple cyst type nodules throughout the hands most all are located at the P1 most pronounced on the right middle finger at P1 and left thumb index and middle finger at P1. Patient is able to make a fist. These cystic/nodules are tender to palpation. Slight bluish discoloration on some are noted. Patient's sensation is intact light touch distally is able to make a fist and extend her digits. -Right P1 middle finger volar subcutaneous nodule -Right dorsal hand subcutaneous nodule -Left thumb proximal phalanx volar subcutaneous nodule -Left P1 index finger volar subcutaneous nodule Recommendations Surgery/Procedure today Other Plans: Plan to proceed to the OR today forRight middle finger mass excision and right dorsal hand mass excision. Patient elects proceed with surgical intervention understands ins and outs procedure the risk benefits complication alternatives of surgery and through shared decision make elects proceed with surgical intervention. All questions answered. Coding Level of Care Code Acute Code for Chg Fwd
[2023-08-19] MEDS: ceFAZolin 2,000 MG in sodium chloride 0.9% (plus) 50 ML 100 MG IV (08:05)
--- NOTE | 2023-08-19 08:49 | P.OP_ITS ---
Operative Report Date of procedure: August 19, 2023 Surgeon: Pio Serra DO Records Management Director: John Serra PA-C: PA was necessary for assistance in this case with hand positioning to execute the procedure, retraction and protection of neurovascular structures as well as to assist with wound closure and dressing application. Procedure: Preoperative diagnosis: Right dorsal hand mass Right middle finger mass Postoperative diagnosis same Procedure Right?dorsal?wrist mass excision Right middle finger mass excision Specimens removed/disposition: Right?dorsal?wrist mass excised and sent for pathology Right middle finger mass excised and sent for pathology Surgeon: Pio Serra DO Estimated blood loss: 5mL Tourniquet time 14 minutes IV fluids: See anesthesia record Complications: None Findings: See operative report narrative Condition: stable Disposition: same day Brief History: Patient's been worked up in the outpatient setting and findings consistent with preoperative diagnosis.? Patient has a right middle finger mass/cyst as well as right dorsal hand mass/cyst. She has history of [place]'s disease she has been worked up properly for this and cleared for surgical intervention. Patient has attempted conservative treatment and this has become significantly painful.? We talked about treatment options as far as nonoperative and operative in tervention.? At this point time patient like a more permanent solution in the lowest chance of recurrence and as result through shared decision making we agreed to proceed with a right?dorsal?wrist cyst/mass excision as well as right middle finger cyst/mass excision. Patient understands risk benefits complication alternatives surgical nonsurgical treatment options.? Understanding risk of surgery patient agrees to proceed.? All questions answered.? Consent obtained in the office. Procedure: Patient seen evaluate in the preoperative holding area.? Consent was signed and reviewed with patient.? All questions were answered at that time.? Correct extremity was then marked.? Once seen evaluated by anesthesia patient was then brought back to the operative suite.? Patient was then placed in supine position all bony prominences well-padded patient was properly secured to the bed.? An armboard was then applied for the right upper extremity.? A nonsterile tourniquet was applied to the right upper extremity arm.? Patient then underwent anesthesia per the anesthesia department.? Once appropriately anesthetized the right upper extremity was then prepped and draped in standard orthopedic fas hion.? Final timeout performed.? Patient received appropriate preoperative antibiotics. Under sterile aseptic technique I began with local anesthetic for my preplanned surgical site.? Then I utilized an Esmarch tourniquet to exsanguinate the right upper extremity to 250 mmHg Patient had a small soft mobile cyst/mass which a incision was then centered longitudinally directly over the cyst over the?dorsal?aspect of the right hand.? sharp scalpel incision was made through skin and subcutaneous tissue.? I then switched to dissection scissors and spread longitudinally to identify branches of the superficial radial nerve.? These were protected throughout the case.? I immediately encountered mass/cyst which actually appeared to be more of a lipoma this was circumferentially walled off and subsequently dissected around the circumferentially. This was in the subcutaneous region did not invade into the tendon sheaths. I subsequently utilized pickups dissected around the mass and subsequently excised this to its entirety. This was then sent for pathology. This completed removal of mass on the dorsal aspect of the hand. I then subsequently made incision centering over the right middle finger mass. Subsequently used a Anirudh incision and dissected over this on the ulnar aspect over P1 of the middle finger sharp scalpel incision was made through skin only I then switched to Littler dissection scissor spreading in line dissected around the mass which had a convolution of numerous veins and vessels consistent with possibly a hemangioma/Meagan Janki at this point I identified the digital neurovascular bundle and protected this throughout this case and then subsequently dissected circumferentially around the right middle finger mass to its entirety and then peeled this off of the neurovascular bundle utilizing bipolar electrocautery. Once again protecting the neurovascular bundle throughout the case this was then removed and then sent for pathology. This point in time tourniquet was then let down. I then thoroughly irrigated the wound bed tourniquet was deflated.? Hemostasis was satisfactory with bipolar electrocautery.? I then closed the incision in layered fashion with 3-0 Vicryl suture subcutaneously dorsally and close skin as well as the finger with interrupted nylon suture. Xeroform over the incisions 4 x 4's ABD soft roll and a volar splint was applied.? Patient was then awakened from anesthesia and taken back in stable condition. Disposition: Patient taken back in stable condition recovering well.? Patient will receive appropriate discharge instructions as well as pain medication postoperatively.? Patient placed in a volar splint.? We will follow-up with in the orthopedic office in 2 weeks.? Patient understands of any questions or concerns and contact the office.
[2023-08-19] MEDS: BUPivacaine 0.5% INJ 10 mL 5 ML INJECTION (09:03)
[2023-08-19] MEDS: ROPivacaine 0.5% SDV 30 mL 25 MG INJECTION (09:04)
--- NOTE | 2023-08-19 09:12 | W.PM.BPON ---
Date of Procedure: [August 19, 2023] Surgeon: [Dr. Serra DO] Airborne And Air Delivery Specialist(s): [John Serra PA-C] Procedure(s) performed: [Right?dorsal?wrist mass excision Right middle finger mass excision] Findings of the procedure(s): [Right dorsal hand mass Right middle finger mass] Estimated blood loss: [5 ml] Specimen(s) removed: [2 cysts removed and sent to pathology] Post-operative diagnosis: [Right dorsal hand mass Right middle finger mass]
--- NOTE | 2023-08-19 09:17 | P.PCN_ITS ---
PACU note Narrative: Patient is a 58-year-old female just underwent 2 cyst excisions on right hand. Patient transferred to PACU in stable condition. Pain is well controlled. Dressing on hand is dry and in place. Patient's fingers are warm and well- perfused. Patient can wiggle fingers. normal cap refill under 2 seconds. Patient has normal elbow range of motion. Unable to assess sensation due to residual localized anesthetic. Exam: awake Disposition: discharged
--- NOTE | 2023-08-19 10:30 | ANE.PACU2 ---
Inpatient post-anesthesia follow up: Airway intact: Yes Vital signs: Temperature 98 F Pulse Rate 84 Respiratory Rate 18 Blood Pressure 155/91 Pulse Oximetry 96 Oxygen Delivery Me thod Room Air Oxygen Flow Rate Fraction of Inspir ed Oxygen Hydration adequate: Yes Nausea and vomiting: No Pain level: 1 Mental status: Baseline
== END 2023-08-19 10:29 | disposition home or self-care (01) ==
PROVIDERS: PCP Internal Medicine; Visit Provider Student in an Organized Health Care Education/Training Program
PROC: (CPT 11422; principal; 2023-08-19 07:40)
DX: D17.79 Benign lipomatous neoplasm of other sites (principal); M67.441 Ganglion, right hand; G47.30 Sleep apnea, unspecified; I10 Essential (primary) hypertension; E11.9 Type 2 diabetes mellitus without complications; E78.5 Hyperlipidemia, unspecified; E66.01 Morbid (severe) obesity due to excess calories; Z68.42 Body mass index [BMI] 45.0-49.9, adult; E03.9 Hypothyroidism, unspecified
CPT/HCPCS: 11422; 12041; 26160; 88304; J0131; J0690; J1885; J2704; J2795; J3010; J3490; J7030

== ENCOUNTER 2023-10-22 06:19 | Day surgery (SDC) | payer BC, MEDICAID, SELFPAY ==
[2023-10-22] VITALS (11 sets, daily range): BP systolic 159–197; BP diastolic 80–112; PULSE 76–105; RESP 16–22; TEMP 36.2–36.5; O2SAT 92–97; BMI 49.5
[2023-10-22] MEDS: sodium chloride 0.9% 1,000 ML 30 ML IV (06:46)
--- NOTE | 2023-10-22 07:02 | P.ANESASSM_ITS ---
Pre-Anesthetic Assessment Height/Weight: Height 1.57 m Weight 122.924 kg Temp Pulse Resp BP Pulse Ox O2 Del Method 97.7 F 105 H 18 163/107 96 Room Air 10/22/23 06:48 10/22/23 06:48 10/22/23 06:48 10/22/23 06:48 10/22/23 06:48 10/22/23 07:01 Operation Date: 10/22/23 07:40 Proposed Procedures p Left index finger mass excision , left thumb mass excision , possible left hand palmar mass excision and left forearm mass excision(Left) - Pio Serra DO Familial anesthetic complications: None Was Beta Wesley taken within 24 hours: N/A Was Clonidine taken within 24 hours: N/A Last intake: Intake Last Liquid Date 10/21/23 Last Liquid Time 21:00 Last Solid Date 10/21/23 Last Solid Time 21:00 Social No alcohol and No tobacco Exam alert, oriented x 3, clear to auscultation bilaterally and regular rate & rhythm Airway Mallampati: Class III Dentition: other (poor dentition - visible decaying, discolored, many gone) CV/HEM Hypertension Metabolic Diabetes Mellitus, Hyperlipidemia, Morbid Obesity and Thyroid Disease Anesthetic Plan ASA status: 3 Anesthesia: MAC Risk of > 500 ml blood loss (7ml/kg in children): No Medications/Allergies Home Medications Medication Instructions Recorded Confirmed Last Taken Type cyclobenzaprine 10 mg tablet 10 mg PO TID PRN Muscle Spasm 07/25/19 10/22/23 10/21/23 History hydrocodone 5 mg-acetaminophen 325 1 tab PO Q4H PRN Pain 11/06/21 10/21/23 10/22/23 History mg tablet zonisamide 100 mg capsule 100 mg PO DIRECTED 11/06/21 10/22/23 10/21/23 History hydrochlorothiazide 12.5 mg tablet 12.5 mg PO DAILY 08/12/22 10/21/23 10/21/23 History simvastatin 10 mg tablet 10 mg PO DAILY 08/12/22 10/21/23 10/21/23 History bisacodyl 5 mg tablet,delayed 10 mg PO DAILY PRN stool softne 08/17/23 10/22/23 08/18/23 History release levothyroxine 125 mcg tablet 125 mcg PO DAILY 08/17/23 10/21/23 10/21/23 History Allergies Allergy/AdvReac Type Severity Reaction Status Date / Time tape adhesive Allergy rash Uncoded 10/22/23 06:53 Current Medications Generic Name Dose Route Start Last Admin Trade Name Zenon PRN Reason Stop Dose Admin Sodium Chloride 1,000 mls @ 30 mls/hr 10/22/23 06:45 10/22/23 06:46 Sodium Chloride 0.9% IV 10/23/23 06:44 30 mls/hr .Q24H LUKASZ Administration PFSH Anesthesia Medical History Bilateral leg pain Clemente disease History of colon polyps Diverticulitis Hypothyroidism Hypertension Surgical History History of total hysterectomy with bilateral salpingo-oophorectomy (BSO) History of bilateral mastectomy History of thyroidectomy, total History of tonsillectomy History of laparoscopic cholecystectomy History of 2 sections History of colonoscopy (07/26/19) repeat in 3 years History of esophagogastroduodenoscopy (EGD) Family History Family/Other Diabetes Denies family history of Anesthesia complication Bleeding disorder Social History Smoking and tobacco/nicotine status: never used tobacco/nicotine Second hand smoke exposure: No Alcohol intake: never Substance/Drug Use: never Adopted: No Caregiver/support person: No Lives independently: Yes Household members: none Housing: Apartment Marital status: Single Current occupational exposures/hazards: No Pets and animals: No Sexually active: No Do you think of yourself as: Straight/Heterosexual Current gender identity: Female Agata/Oriental Orthodox: Jain Special agata needs: No Agree to transfusion: No Data Anesthesia 10/22/23 06:55 Cardiac Studies: 2 Echocardiogram 04/18/22 Sestamibi Stress Test (Cardiology) 05/19
[2023-10-22] MEDS: ketorolac 30 mg/mL INJ IVP (07:12)
[2023-10-22] MEDS: scopolamine 1.5 Patch 1 PATCH TRANSDERMA (07:12)
[2023-10-22] MEDS: acetaminophen 1,000 MG/100 ML PIGGYBACK 400 MG IV (07:12)
--- NOTE | 2023-10-22 07:18 | P.HP_ITS ---
Same Day Surgery H&P Indication for Procedure/HPI DATE OF PROCEDURE: October 22, 2023 CHIEF COMPLAINT/INDICATIONFOR SURGICAL PROCEDURE: Left index finger mass, left thumb mass, left middle finger mass, left forearm PREOP DIAGNOSIS: Left index finger, thumb mass , left middle finger mass, left forearm mass PLANNED PROCEDURE: Operation Date: 10/22/23 07:40 Proposed Procedures p Left index finger mass excision , left thumb mass excision , possible left hand palmar mass excision and left forearm mass excision(Left) - Pio Serra DO Medications/Allergies* Home Medications Medication Instructions Recorded Confirmed Type cyclobenzaprine 10 mg tablet 10 mg PO TID PRN Muscle Spasm 07/25/19 10/22/23 History hydrocodone 5 mg-acetaminophen 325 1 tab PO Q4H PRN Pain 11/06/21 10/21/23 History mg tablet zonisamide 100 mg capsule 100 mg PO DIRECTED 11/06/21 10/22/23 History hydrochlorothiazide 12.5 mg tablet 12.5 mg PO DAILY 08/12/22 10/21/23 History simvastatin 10 mg tablet 10 mg PO DAILY 08/12/22 10/21/23 History bisacodyl 5 mg tablet,delayed 10 mg PO DAILY PRN stool softne 08/17/23 10/22/23 History release levothyroxine 125 mcg tablet 125 mcg PO DAILY 08/17/23 10/21/23 History Allergies/Adverse Reactions Allergy/AdvReac Type Severity Reaction Status Date / Time tape adhesive Allergy rash Uncoded 10/22/23 06:53 Current Medications: Generic Name Dose Route Start Last Admin Trade Name Freq PRN Reason Stop Dose Admin Sodium Chloride 1,000 mls @ 30 mls/hr 10/22/23 06:45 10/22/23 06:46 Sodium Chloride 0.9% IV 10/23/23 06:44 30 mls/hr .Q24H LUKASZ Administration Pertinent History/Comorbid Conditions* Medical History (Updated 09/03/23 @ 10:42 by DINA White) Bilateral leg pain Clemente disease History of colon polyps Diverticulitis Hypothyroidism Hypertension Surgical History (Updated 07/26/19 @ 09:57 by Eder Cole MD) History of total hysterectomy with bilateral salpingo-oophorectomy (BSO) History of bilateral mastectomy History of thyroidectomy, total History of tonsillectomy History of laparoscopic cholecystectomy History of 2 sections History of colonoscopy (07/26/19) repeat in 3 years History of esophagogastroduodenoscopy (EGD) Family History (Updated 06/07/19 @ 15:20 by Diana Tobias RN) Diabetes Family/Other Denies family history of Anesthesia complication Bleeding disorder Social History Smoking and tobacco/nicotine status: never used tobacco/nicotine Second hand smoke exposure: No Alcohol intake: never Substance/Drug Use: never Adopted: No Caregiver/support person: No Lives independently: Yes Household members: none Housing: Apartment Marital status: Single Current occupational exposures/hazards: No Pets and animals: No Sexually active: No Do you think of yourself as: Straight/Heterosexual Current gender identity: Female Agata/Adventism: Sikhism Special agata needs: No Agree to transfusion: No Pertinent Exam Findings alert, oriented x 3, operative site marked and procedure specific exam findings Refer to detailed orthopedic examination on 09/03/2023: Examination today left thumb volar finger mass left index finger volar finger mass left middle finger volar finger mass, left dorsal forearm mass. Palpable mobile and tender to palpation. Bilateral hands - right hand surgical incision site is healing well no signs of infection. No erythema, warmth or purulent drainage seen. Full range of motion wrist and fingers. No wound dehiscence seen. Examination of the bilateral hands have multiple cyst type nodules throughout the hands most all are located at the P1 most pronounced on the right middle finger at P1 and left thumb index and middle finger at P1. Patient is able to make a fist. These cystic/nodules are tender to palpation. Possible palpable cyst near the A1 yane of second and third digit. Patient's sensation is intact light touch distally is able to make a fist and extend her digits. Patient also has a palpable tender tender nodule on left forearm as well. No erythema, warmth or purulent drainage. No signs of an abscess. -Left thumb proximal phalanx volar subcutaneous nodule -Left P1 index finger volar subcutaneous nodule Recommendations Surgery/Procedure today Other Plans: Plan to proceed to the OR today for left index finger mass excision, left thumb mass excision, left middle finger mass excision, left forearm mass excision. Patient understands ins and outs procedure the risk benefits complication alternatives to surgery and through shared decision-making was proceed with surgical intervention all questions answered at this time. Coding Level of Care Code Acute Code for Chg Fwd
[2023-10-22 07:22] LABS: Anion Gap 15.9 (5-19); Blood Urea Nitrogen 16 mg/dL (6-20); Calcium 9.9 mg/dL (8.5-10.5); Carbon Dioxide 24 mmol/L (22-29); Chloride 102 mmol/L (98-107); Creatinine Clr Calc Pharmacy 85.2207; Glomerular Filtration Rate 64.3 mL/min (90-130); Glucose 113 mg/dL (65-115); Osmolality Calculated 288 mOsm/kg (285-295); Potassium 3.9 mmol/L (3.5-5.1); Sodium 138 mmol/L (136-145)
[2023-10-22] MEDS: ceFAZolin 3,000 MG in sodium chloride 0.9% (plus) 50 ML 100 MG IV (07:45)
[2023-10-22] MEDS: lidocaine 2% INJ 20 mL 5 ML INJECTION (08:39)
[2023-10-22] MEDS: ROPivacaine 0.5% SDV 30 mL 25 MG INJECTION (08:39)
--- NOTE | 2023-10-22 08:44 | W.PM.BPON ---
Date of Procedure: [10/22/2023] Surgeon: Pio Serra DO [employer] Truck Driver(s): None Procedure(s) performed: Left forearm mass excision, left thumb mass excision left index finger mass excision, left middle finger mass excision Findings of the procedure(s): Patient was found to have mass of the left forearm thumb index middle finger underwent excision without issues or complications. Estimated blood loss: 15 mL Specimen(s) removed: All specimens sent individually of left forearm mass, left thumb mass left index finger mass, left middle finger mass Post-operative diagnosis: left forearm mass, left thumb mass left index finger mass, left middle finger mass
--- NOTE | 2023-10-22 08:47 | P.OP_ITS ---
Operative Report Date of procedure: October 22, 2023 Surgeon: Pio Serra DO Procedure: Preoperative diagnosis: Left forearm mass Left thumb mass Left index finger mass Left middle finger mass Postoperative diagnosis left forearm mass, left thumb mass left index finger mass, left middle finger mass Procedure Left forearm mass excision, left thumb mass excision left index finger mass excision, left middle finger mass excision Specimens removed/disposition: Left forearm mass sent for pathology left thumb mass sent for pathology left index finger mass sent for pathology left middle finger mass sent for pathology Surgeon: Pio Serra DO Estimated blood loss: 15mL Tourniquet time 24 minutes IV fluids: See anesthesia record Complications: None Findings: See operative report narrative Condition: stable Disposition: same day Brief History: Patient's been worked up in the outpatient setting and findings consistent with preoperative diagnosis.? Patient has a Left forearm mass, thumb mass, index finger mass, middle finger mass She has history of [place]'s disease she has been worked up properly for this and cleared for surgical intervention. Patient's already had masses removed on the right upper extremity as well but has done well with this. Patient has attempted conservative treatment and this has become significantly painful.? We talked about treatment options as far as nonoperative and operative intervention.? At this point time patient like a more permanent solution in the lowest chance of recurrence and as result through shared decision making we agreed to proceed with a left forearm, thumb, index finger, middle finger mass excisions. patient understands risk benefits complication alternatives surgical nonsurgical treatment options.? Understanding risk of surgery patient agrees to proceed.? All questions answered.? Consent obtained in the office. Procedure: Patient seen evaluate in the preoperative holding area.? Consent was signed and reviewed with patient.? All questions were answered at that time.? Correct extremity was then marked.? Once seen evaluated by anesthesia patient was then brought back to the operative suite.? Patient was then placed in supine position all bony prominences well-padded patient was properly secured to the bed.? An armboard was then applied for the Left upper extremity.? A nonsterile tourniquet was applied to the Left upper extremity arm.? Patient then underwent anesthesia per the anesthesia department.? Once appropriately anesthetized the Left upper extremity was then prepped and draped in standard orthopedic fashion.? Final timeout performed.? Patient received appropriate preoperative antibiotics. Then I utilized an Esmarch tourniquet to exsanguinate the Left upper extremity to 250 mmHg Patient had a small soft mobile mass which a incision was then centered longitudinally directly over the cyst over the left forearm. Sharp scalpel incision was made through skin and subcutaneous tissue.? I then switched to dissection scissors and spread longitudinally. Neurovascular structures were prrotected throughout the case.? I immediately encountered mass. Circumferentially I dissected around the mass. This is more within the subcutaneous region and then subsequently was ellipticized out and bipolar electrocautery was used to extract this at the base and utilize coagulation to electrocauterized the base of the mass wound bed. This was then sent for pathology. This completed the left forearm mass excision and was sent for pathology. Thoroughly irrigation performed. I then subsequently made incision centering over the Left thumb mass. Subsequently used a incision centered over mass sharp scalpel incision was made through skin only I then switched to Littler dissection scissor spreading in line dissected around the mass which had a convolution of numerous veins and vessels consistent with possibly a hemangioma/hamartoma at this point I identified the neurovascular structures and protected this throughout this case and then subsequently dissected circumferentially around the Left thumb finger mass to its entirety and then peeled this off of the neurovascular bundle utilizing bipolar electrocautery. Once again protecting the neurovascular bundle throughout the case this was then removed and then sent for pathology. This completed left thumb mass excision and was thoroughly irrigated. I then subsequently made incision centering over the Left index finger mass. Subsequently used a incision centered over mass sharp scalpel incision was made through skin only I then switched to Littler dissection scissor spreading in line dissected around the mass which had a convolution of numerous veins and vessels consistent with possibly a hemangioma/hamartoma at this point I identified the neurovascular structures and protected this throughout this case and then subsequently dissected circumferentially around the Left index finger mass to its entirety and then peeled this off of the neurovascular bundle utilizing bipolar electrocautery. Once again protecting the neurovascular bundle throughout the case this was then removed and then sent for pathology. This completed left index mass excision and was thoroughly irrigated. I then subsequently made incision centering over the Left middle finger mass. Subsequently used a incision centered over mass sharp scalpel incision was made through skin only I then switched to Littler dissection scissor spreading in line dissected around the mass which had a convolution of numerous veins and vessels consistent with possibly a hemangioma/hamartoma at this point I identified the neurovascular structures and protected this throughout this case and then subsequently dissected circumferentially around the Left middle finger mass to its entirety and then peeled this off of the neurovascular bundle utilizing bipolar electrocautery. Once again protecting the neurovascular bundle throughout the case this was then removed and then sent for pathology. This completed left middle mass excision and was thoroughly irrigated. At this point in time tourniquet was deflated. I then thoroughly irrigated the incision.? Hemostasis was satisfactory with bipolar electrocautery.? I then closed the incision in layered fashion with 3-0 Vicryl suture subcutaneously over the forearm and close skin as well as the finger incisions with interrupted nylon suture. Xeroform over the incisions 4 x 4's ABD soft roll and a volar splint was applied.? Patient was then awakened from anesthesia and taken back in stable condition. Disposition: Patient taken back in stable condition recovering well.? Patient will receive appropriate discharge instructions as well as pain medication p ostoperatively.? Patient placed in a volar splint.? We will follow-up with in the orthopedic office in 2 weeks.? Patient understands of any questions or concerns and contact the office.
[2023-10-22] MEDS: labetalol 5 mg/mL SDV 20mL 10 MG IVP (09:36)
--- NOTE | 2023-10-22 10:55 | ANE.PACU2 ---
Inpatient post-anesthesia follow up: Airway intact: Yes Vital signs: Temperature 97.4 F Pulse Rate 77 Respiratory Rate 18 Blood Pressure 159/106 Pulse Oximetry 94 Oxygen Delivery Me thod Room Air Oxygen Flow Rate 6 Fraction of Inspir ed Oxygen Hydration adequate: Yes Nausea and vomiting: No Pain level: 1 Mental status: Baseline
== END 2023-10-22 10:55 | disposition home or self-care (01) ==
PROVIDERS: Anesthesiology; PCP Internal Medicine; Visit Provider Student in an Organized Health Care Education/Training Program
PROC: (CPT 11403; principal; 2023-10-22 07:40)
DX: R22.32 Localized swelling, mass and lump, left upper limb (principal); I10 Essential (primary) hypertension; E11.9 Type 2 diabetes mellitus without complications; E78.5 Hyperlipidemia, unspecified; E66.01 Morbid (severe) obesity due to excess calories; Z68.42 Body mass index [BMI] 45.0-49.9, adult; E03.9 Hypothyroidism, unspecified
CPT/HCPCS: 11403; 11422 ×3; 80048; 88304; 88307; J0131; J0690; J1100; J1885; J2250; J2405; J2704; J2795; J3010; J3490; J7030

== ENCOUNTER 2023-10-30 07:01 | Day surgery (SDC) | payer BC, MEDICAID, SELFPAY ==
[2023-10-30] VITALS (12 sets, daily range): BP systolic 151–178; BP diastolic 70–95; PULSE 89–100; RESP 16–18; TEMP 36.2–36.6; O2SAT 91–95
--- NOTE | 2023-10-30 07:43 | ANES.PREANE2 ---
Pre-Anesthetic Assessment Height/Weight: Height 1.57 m Preop Diagnosis: Lumbar stenosis neurogenic claudication Operation Date: 10/30/23 08:55 Proposed Procedures p Lumbar Spine Decompression Lumbar Decompression(Not Applicable) - Kimo Talavera DO Social No alcohol and No tobacco Airway Submandibular: within normal limits Cervical ROM: within normal limits Mallampati: Class II Pulmonary Sleep Apnea CV/HEM Hypertension Metabolic Hyperlipidemia and Thyroid Disease (s/p thyroidectomy ) Anesthetic Plan ASA status: 3 Anesthesia: General Medications/Allergies Home Medications Medication Instructions Recorded Confirmed Last Taken Type cyclobenzaprine 10 mg tablet 10 mg PO TID PRN Muscle Spasm 07/25/19 10/29/23 10/28/23 History zonisamide 100 mg capsule 100 mg PO DIRECTED 11/06/21 10/29/23 10/28/23 History hydrochlorothiazide 12.5 mg tablet 12.5 mg PO DAILY 08/12/22 10/29/23 10/28/23 History simvastatin 10 mg tablet 10 mg PO DAILY 08/12/22 10/29/23 10/28/23 History bisacodyl 5 mg tablet,delayed 10 mg PO DAILY PRN stool softne 08/17/23 10/29/23 10/28/23 History release levothyroxine 125 mcg tablet 125 mcg PO DAILY 08/17/23 10/29/23 10/28/23 History hydrocodone 5 mg-acetaminophen 325 1 tab PO Q4H PRN Pain 5 days #30 10/22/23 10/29/23 10/28/23 Rx mg tablet tabs Allergies Allergy/AdvReac Type Severity Reaction Status Date / Time tape adhesive Allergy rash Uncoded 10/22/23 06:53 PFSH Anesthesia Medical History Bilateral leg pain Clemente disease History of colon polyps Diverticulitis Hypothyroidism Hypertension Surgical History History of total hysterectomy with bilateral salpingo-oophorectomy (BSO) History of bilateral mastectomy History of thyroidectomy, total History of tonsillectomy History of laparoscopic cholecystectomy History of 2 sections History of colonoscopy (07/26/19) repeat in 3 years History of esophagogastroduodenoscopy (EGD) Family History Family/Other Diabetes Denies family history of Anesthesia complication Bleeding disorder Social History Smoking and tobacco/nicotine status: never used tobacco/nicotine Second hand smoke exposure: No Alcohol intake: never Substance/Drug Use: never Adopted: No Caregiver/support person: No Lives independently: Yes Household members: none Housing: Apartment Marital status: Single Current occupational exposures/hazards: No Pets and animals: No Sexually active: No Do you think of yourself as: Straight/Heterosexual Current gender identity: Female Agata/Taoism: Christianity Special agata needs: No Agree to transfusion: No Data Anesthesia Cardiac Studies: Echocardiogram 04/18/22 Sestamibi Stress Test (Cardiology) 05/19/22
[2023-10-30] MEDS: sodium chloride 0.9% 1,000 ML 30 ML IV (07:44)
[2023-10-30] MEDS: scopolamine 1.5 Patch 1 PATCH TRANSDERMA (07:44)
--- NOTE | 2023-10-30 09:03 | W.PM.OPSFHP ---
Same Day Surgery H&P Indication for Procedure/HPI DATE OF PROCEDURE: October 30, 2023 CHIEF COMPLAINT/INDICATIONFOR SURGICAL PROCEDURE: Back and right leg pain PREOP DIAGNOSIS: Lumbar stenosis neurogenic claudication PLANNED PROCEDURE: Operation Date: 10/30/23 08:55 Proposed Procedures p Lumbar Spine Decompression Lumbar Decompression(Not Applicable) - Kimo Talavera DO Medications/Allergies* Home Medications Medication Instructions Recorded Confirmed Type cyclobenzaprine 10 mg tablet 10 mg PO TID PRN Muscle Spasm 07/25/19 10/29/23 History zonisamide 100 mg capsule 100 mg PO DIRECTED 11/06/21 10/29/23 History hydrochlorothiazide 12.5 mg tablet 12.5 mg PO DAILY 08/12/22 10/29/23 History simvastatin 10 mg tablet 10 mg PO DAILY 08/12/22 10/29/23 History bisacodyl 5 mg tablet,delayed 10 mg PO DAILY PRN stool softne 08/17/23 10/29/23 History release levothyroxine 125 mcg tablet 125 mcg PO DAILY 08/17/23 10/29/23 History Allergies/Adverse Reactions Allergy/AdvReac Type Severity Reaction Status Date / Time tape adhesive Allergy rash Uncoded 10/22/23 06:53 Current Medications: Generic Name Dose Route Start Last Admin Trade Name Freq PRN Reason Stop Dose Admin Sodium Chloride 1,000 mls @ 30 mls/hr 10/30/23 07:15 10/30/23 07:44 Sodium Chloride 0.9% IV 10/31/23 07:14 30 mls/hr .Q24H LUKASZ Administration Pertinent History/Comorbid Conditions* Medical History (Updated 09/03/23 @ 10:42 by DINA White) Bilateral leg pain Clemente disease History of colon polyps Diverticulitis Hypothyroidism Hypertension Surgical History (Updated 07/26/19 @ 09:57 by Eder Cole MD) History of total hysterectomy with bilateral salpingo-oophorectomy (BSO) History of bilateral mastectomy History of thyroidectomy, total History of tonsillectomy History of laparoscopic cholecystectomy History of 2 sections History of colonoscopy (07/26/19) repeat in 3 years History of esophagogastroduodenoscopy (EGD) Family History (Updated 06/07/19 @ 15:20 by Diana Tobias RN) Diabetes Family/Other Denies family history of Anesthesia complication Bleeding disorder Social History Smoking and tobacco/nicotine status: never used tobacco/nicotine Second hand smoke exposure: No Alcohol intake: never Substance/Drug Use: never Adopted: No Caregiver/support person: No Lives independently: Yes Household members: none Housing: Apartment Marital status: Single Current occupational exposures/hazards: No Pets and animals: No Sexually active: No Do you think of yourself as: Straight/Heterosexual Current gender identity: Female Agata/[employer]ist: Lutheran Special agata needs: No Agree to transfusion: No Pertinent Exam Findings alert, oriented x 3 and procedure specific exam findings Recommendations Surgery/Procedure today Coding Level of Care Code Acute Code for Chg Fwd
[2023-10-30] MEDS: ceFAZolin 2,000 mg SDV 2000 MG IVP (09:23)
[2023-10-30] MEDS: ceFAZolin 1,000 mg SDV 1000 MG IVP (09:23)
[2023-10-30] MEDS: lidocaine-epi 1% 20 mL INJ INJECTION (10:14)
--- NOTE | 2023-10-30 11:06 | XR_ITS ---
WS: [id number] Examination: XR lumbar spine 1V [id number] Reason for Exam: or pic, decompression Date: October 30, 2023 Comparison: None. Findings: 3 intraoperative images of been obtained with 7 seconds of fluoroscopy. The dap is 38.5 mGy. Images demonstrate surgical changes involving the lower lumbar spine. Please see intraoperative note for full explanation of findings and the procedure.
--- NOTE | 2023-10-30 11:34 | P.OP_ITS ---
Operative Report Date of procedure: October 30, 2023 Pre-op diagnosis: Lumbar stenosis with neurogenic claudication Post-op diagnosis: same Procedure done: 1. L3-4 laminectomy with partial facetectomy 2. L4-5 laminectomy and partial facetectomy 3. L5-S1 laminectomy and partial facetectomy Surgeon: Kimo Talavera DO Estimated blood loss (mL): 15 Procedure: 1. L3-4 laminectomy with partial facetectomy 2. L4-5 laminectomy and partial facetectomy 3. L5-S1 laminectomy and partial facetectomy Patient is brought to the operative suite. After undergoing anesthesia they are placed in the prone position. All areas of impingement are well padded. Patient is then prepped and draped in the normal sterile fashion. A skin incision is made over the L3-4 level. This is confirmed under c-arm guidance. A series of dilators are passed and the tubular retractor is docked on the L3 lamina. A bovie is used to clear the soft tissue off the lamina and the L 3/4 facet joint. A high speed nelda is then used to perform the laminectomy and take down the medial aspect of the L 3/4 facet joint. A kerrison rongeure was then used to take down the remaining lamina and smooth the edge of the laminectomy up to the point where the ligamentum flavum attaches. Attention was then brought to the medial aspect of the facet joint. The remaining medial aspect of the superior and inferior aspect of the facet joint were taken down with the kerrison from the pedicle of L3 to L 4. The facet joint had significant hypertrophy. Attention was then brought to the Ligamentum Flavum. The ligament was taken down from the lamina of L3 to L4 and out medially to the remaining facet joint. The ligament was thick. The dura was then exposed. The dura was in good repair. The L3 nerve was then traced with a curette out the L3/4 foramen and found to be adequately decompressed. The L4 nerve was traced with a curette around the L4 pedicle. The lateral recess was opened with a kerrison helping to further decompress the L4 nerve. Wound is then irrigated copiously with saline and surgiflo is used to stop any bleeding. The tubular retractor is removed and the A skin incision is made over the L4/5 level. This is confirmed under c-arm guidance. A series of dilators are passed and the tubular retractor is docked on the L4 lamina. A bovie is used to clear the soft tissue off the lamina and the L 4/5 facet joint. A high speed nelda is then used to perform the laminectomy and take down the medial aspect of the L 4/5 facet joint. A kerrison rongeure was then used to take down the remaining lamina and smooth the edge of the laminectomy up to the point where the ligamentum flavum attaches. Attention was then brought to the medial aspect of the facet joint. The remaining medial aspect of the superior and inferior aspect of the facet joint were taken down with the kerrison from the pedicle of L4 to L 5. The facet joint had significant hypertrophy. Attention was then brought to the Ligamentum Flavum. The ligament was taken down from the lamina of L4 to L5 and out medially to the remaining facet joint. The ligament was thick. The dura was then exposed. The dura was in good repair. The L4 nerve was then traced with a curette out the L4/5 foramen and found to be adequately decompressed. The L5 nerve was traced with a curette around the L5 pedicle. The lateral recess was opened with a kerrison helping to further decompress the L5 nerve. Wound is then irrigated copiously with saline and surgiflo is used to stop any bleeding. The tubular retractor is removed and the A skin incision is made over the L5/S1 level. This is confirmed under c-arm guidance. A series of dilators are passed and the tubular retractor is docked on the L5 lamina. A bovie is used to clear the soft tissue off the lamina and the L 5/S1 facet joint. A high speed nelda is then used to perform the l aminectomy and take down the medial aspect of the L 5/S1 facet joint. A kerrison rongeure was then used to take down the remaining lamina and smooth the edge of the laminectomy up to the point where the ligamentum flavum attaches. Attention was then brought to the medial aspect of the facet joint. The remaining medial aspect of the superior and inferior aspect of the facet joint were taken down with the kerrison from the pedicle of L5 to S1. The facet joint had significant hypertrophy. Attention was then brought to the Ligamentum Flavum. The ligament was taken down from the lamina of L5 to S1 and out medially to the remaining facet joint. The ligament was thick. The dura was then exposed. The dura was in good repair. The L5 nerve was then traced with a curette out the L5/S1 foramen and found to be adequately decompressed. The S1 nerve was traced with a curette around the S1 pedicle. The lateral recess was opened with a kerrison helping to further decompress the S1 nerve. Wound is then irrigated copiously with saline and surgiflo is used to stop any bleeding. The tubular retractor is removed and the wound is closed with vicryl and monocryl suture. Glue is then used to protect the wound. A sterile dressing is then placed. Patient was then placed in the supine position and transferred to the PACU in stable condition.
[2023-10-30] MEDS: ondansetron 2 mg/ML SDV 2 mL 4 MG IVP (11:57)
--- NOTE | 2023-10-30 12:11 | ANE.PACU2 ---
Inpatient post-anesthesia follow up: Airway intact: Yes Vital signs: Temperature 97.1 F Pulse Rate 91 Respiratory Rate 18 Blood Pressure 162/85 Pulse Oximetry 91 Oxygen Delivery Me thod Room Air Oxygen Flow Rate 3 Fraction of Inspir ed Oxygen Hydration adequate: Yes Nausea and vomiting: No Mental status: Baseline
== END 2023-10-30 13:00 | disposition home or self-care (01) ==
PROVIDERS: PCP Internal Medicine; Visit Provider Orthopaedic Surgery
PROC: (CPT 63005; principal; 2023-10-30 08:45)
DX: M48.062 Spinal stenosis, lumbar region with neurogenic claudication (principal); G47.30 Sleep apnea, unspecified; I10 Essential (primary) hypertension; E78.5 Hyperlipidemia, unspecified; E03.9 Hypothyroidism, unspecified
CPT/HCPCS: 63047; 63048 ×2; 72020; 76000; J0131; J0690; J1100; J2405; J2704; J3010; J3490; J3535; J7030

== ENCOUNTER 2023-11-02 03:53 | Inpatient (IN) | payer BC, MEDICAID, SELFPAY ==
[2023-11-02] VITALS (14 sets, daily range): BP systolic 123–185; BP diastolic 84–138; PULSE 91–107; RESP 16–20; TEMP 36.6–37.1; O2SAT 92–99; BMI 50.5
--- NOTE | 2023-11-02 04:13 | CTR_ITS ---
PROCEDURE INFORMATION: Exam: CT Lumbar Spine With Contrast Exam date and time: 11/02/2023 5:29 AM Age: 58 years old Clinical indication: Prior surgery; Surgery date: 3-7 days post-operative; Surgery type: Lumbar laminectomy 10/30/2023. Hysterectomy. Csection. Patient HX: C/O severe low back pain post lumbar laminectomy three days ago. ; Additional info: Postoperative lumbar pain S/P lumbar decompression TECHNIQUE: Imaging protocol: Computed tomography of the lumbar spine with contrast. Radiation optimization: All CT scans at this facility use at least one of these dose optimization techniques: automated exposure control; mA and/or kV adjustment per patient size (includes targeted exams where dose is matched to clinical indication); or iterative reconstruction. Contrast material: OMNI 350; Contrast volume: 100 ml; Contrast route: INTRAVENOUS (IV); COMPARISON: MR lumbar spine wo con* [id number] 07/09/2023 4:12 PM RADIATION DOSE METRICS: Total DLP (mGy-cm): 1165.07 FINDINGS: Bones/joints: No acute fracture or malalignment. Remote mild compression deformities spanning T11-L1, with superior endplate Schmorl's nodes at these levels. Postsurgical changes of recent right hemilaminectomies spanning L3-L5, with expected mild postoperative gas and soft tissue stranding within the thecal sac, and also in the adjacent right paravertebral muscles. No organized, drainable fluid collection. No distinct epidural fluid or spinal canal narrowing. Moderate to severe multilevel degenerative change in the lumbar spine, better described on recent MRI. Isoattenuating (49 Hounsfield units) round lesion in the left superior pole medial cortex measuring 1.5 x 1.6 cm. Gallbladder and biliary ducts: Incidental note made of mild extrahepatic biliary dilatation, probably related to prior cholecystectomy. Kidneys and ureters: Bilateral nephrolithiasis. There is an enhancing round mass in the left kidney inferior pole medial cortex measuring 2.1 x 1.8 cm. Soft tissues: See Bones/joints finding. Other findings: Partially seen cystic structure in the left hemiabdomen/left lower quadrant measuring approximately 2.6 x 2.5 cm on image [address]/CT lumbar spine w con [id number] IMPRESSION: 1. No acute fracture or malalignment. Expected postsurgical changes of recent right hemilaminectomies spanning L3-L5. No distinct intrathecal abscess or evidence of spinal canal narrowing on this modality. No appreciable soft tissue abscess. No evidence of osteomyelitis. 2. Moderate to severe lumbar spondylosis. 3. Left kidney inferior pole enhancing lesion is worrisome for malignancy (RCC) until proven otherwise. Right superior pole lesion may represent complex cyst. Recommend renal protocol CT or MRI for complete evaluation.
[2023-11-02] MEDS: ondansetron 2 mg/ML SDV 2 mL 4 MG IVP (04:23)
[2023-11-02] MEDS: HYDROmorphone 1 mg/mL INJ 1 mL IVP ×2 (04:25→05:05)
[2023-11-02 04:40] LABS: Basophils % 0.3 %; Eosinophils # 0.5 10^3/uL (0.0-0.8); Eosinophils % 5.4 %; Hematocrit 40.6 % (36-47); Lymphocytes # 0.9 10^3/uL (0.8-4.8); Lymphocytes % 10.2 %; Mean Corpuscular HGB Conc 31.5 g/dL (30-55); Mean Corpuscular Hemoglobin 31.4 pg (27-33); Mean Corpuscular Volume 99.8 fl (85-98); Monocytes # 0.6 10^3/uL (0.2-0.9); Monocytes % 6.6 %; Neutrophils # 7.04 10^3/uL (1.8-7.7); Neutrophils % 77.1 %; Nucleated Red Blood Cells % 0 %; Platelet Count 194 10^3/cmm (157-399); Red Blood Count 4.07 10^6/uL (3.85-5.65); Red Cell Distribution Width 12.9 % (12.1-15.1); White Blood Count 9.13 10^3/uL (3.29-11.43)
[2023-11-02 04:42] LABS: Erythrocyte Sedimentation Rate 47 mm/hr (0-15)
--- NOTE | 2023-11-02 04:43 | W.ED.BACK ---
Documented by User: Grady Mendoza, 11/07/23 18:51 HPI - Back Pain/Injury General: Chief Complaint: Back Pain/Injury Stated Complaint: back pain Time Seen by Provider: 11/02/23 04:08 History of Present Illness: 58-year-old female who is day 3 status post lumbar decompression surgery on Thursday. She presents with worsening lumbar back pain radiating down both legs, with some paresthesias to the right greater than the left leg. No loss of bowel or bladder function. No fever. No abdominal pain. No vomiting. She has been taking her home hydrocodone without relief. Related Data Home Medications Medication Instructions Recorded Confirmed cyclobenzaprine 10 mg tablet 10 mg PO TID PRN Muscle Spasm 07/25/19 11/06/23 zonisamide 100 mg capsule See Rx Instructions .Route .COMPLEX 11/06/21 11/06/23 hydrochlorothiazide 12.5 mg tablet 12.5 mg PO DAILY 08/12/22 11/06/23 simvastatin 10 mg tablet 10 mg PO DAILY 08/12/22 11/06/23 bisacodyl 5 mg tablet,delayed 10 mg PO DAILY PRN stool softener 08/17/23 11/06/23 release levothyroxine 125 mcg tablet 125 mcg PO DAILY 08/17/23 11/06/23 metformin 500 mg tablet 500 mg PO BID 11/02/23 11/06/23 ondansetron 4 mg disintegrating 4 mg PO Q8H PRN Nausea 11/02/23 11/06/23 tablet Previous Rx's Medication Instructions Recorded oxycodone-acetaminophen 10 mg-325 1 tab PO Q4H PRN pain 7 days #40 11/04/23 mg tablet tabs Allergies Allergy/AdvReac Type Severity Reaction Status Date / Time tape adhesive Allergy rash Uncoded 11/06/23 09:39 PFSH ED PFSH: Medical History Bilateral leg pain Crescent disease History of colon polyps Diverticulitis Hypothyroidism Hypertension Surgical History History of total hysterectomy with bilateral salpingo-oophorectomy (BSO) History of bilateral mastectomy History of thyroidectomy, total History of tonsillectomy History of laparoscopic cholecystectomy History of 2 sections History of colonoscopy (07/26/19) repeat in 3 years History of esophagogastroduodenoscopy (EGD) Family History Family/Other Diabetes Denies family history of Anesthesia complication Bleeding disorder Social History Smoking and tobacco/nicotine status: never used tobacco/nicotine Second hand smoke exposure: No Alcohol intake: never Substance/Drug Use: never Adopted: No Caregiver/support person: No Lives independently: Yes Household members: none Housing: Apartment Marital status: Single Current occupational exposures/hazards: No Pets and animals: No Sexually active: No Do you think of yourself as: Straight/Heterosexual Current gender identity: Female Agata/Hinduism: Adventism Special agata needs: No Agree to transfusion: No Physical Exam Const: GENERAL APPEARANCE: cooperative and anxious (in pain); not ill appearing HENMT: COMMON NORMALS: normocephalic, atraumatic and Normal external nose present HEAD & SCALP: normocephalic and atraumatic FACE & SINUS: normal facial exam and face symmetric NOSE: Normal external nose present Eye: COMMON NORMALS: Equal, round and reactive pupils present and EOMs intact bilaterally PUPIL: Yes Equal, round and reactive pupils present Neck/C-Spine: GENERAL: Yes trachea midline Chest: CHEST: Yes Symmetrical chest wall rise Resp: COMMON NORMALS: normal respiratory effort, No retractions, No use of accessory muscles and clear to auscultation bilaterally AUSCULTATION: clear to auscultation bilaterally Cardio: COMMON NORMALS: regular rate and regular rhythm RATE: regular rate RHYTHM: regular rhythm GI: COMMON NORMALS: Normal to inspection, nondistended, normoactive bowel sounds present Back/Pelvis: LUMBAR SPINE/LOWER BACK: Yes lumbar spinal tenderness Extremity: COMMON NORMALS: no pedal edema Neuro: NELLY COMA SCALE: document GCS findings [place] coma scale eye opening: Spontaneous Nelly coma scale verbal response: Orientated [place] coma scale motor response: Obey commands Nelly coma scale total score: 15 SENSORY EXAM: Yes extremities (intact) Psych: COMMON NORMALS: speech normal SPEECH: Yes normal speech Skin: COMMON NORMALS: no rashes or lesions noted NARRATIVE SKIN EXAM: Incision covered. No leakage. No surrounding cellulitis. GENERAL SKIN EXAM: no rashes or lesions noted Course Vital Signs: Vital signs: Vital Signs Temperature 98.1 F 11/04/23 11:16 Pulse Rate 91 11/04/23 11:16 Respiratory Rate 18 11/04/23 11:16 Blood Pressure 119/82 11/04/23 11:16 Pulse Oximetry 93 11/04/23 11:16 Oxygen Delivery Me thod Room Air 11/04/23 11:16 Oxygen Flow Rate 2 11/03/23 04:00 MDM - Back Pain/Injury Medical Decision Making Patient with increasing back pain following lumbar decompression 3 days ago. White blood cell count is 9. Sed rate is 47, CRP is 231. She is hypertensive. She is afebrile. Other vitals are stable. She was experiencing so much pain, she had to be given multiple medications for CT scan. Currently she is calm. CT of the lumbar spine with IV contrast is performed, and is pending reading. Labs 11/04/23 04:46 11/04/23 04:46 Radiology Impressions Lumbar Spine CT 11/02/23 04:13 IMPRESSION: 1. No acute fracture or malalignment. Expected postsurgical changes of recent right hemilaminectomies spanning L3-L5. No distinct intrathecal abscess or evidence of spinal canal narrowing on this modality. No appreciable soft tissue abscess. No evidence of osteomyelitis. 2. Moderate to severe lumbar spondylosis. 3. Left kidney inferior pole enhancing lesion is worrisome for malignancy (RCC) until proven otherwise. Right superior pole lesion may represent complex cyst. Recommend renal protocol CT or MRI for complete evaluation. Chest X-Ray 11/02/23 07:42 IMPRESSION: Continued obscuration of the left mid/lower lung, a component of which likely represents cardiac silhouette. Underlying subsegmental atelectasis or consolidation not excluded. Right lung is grossly clear. Laboratory Results WBC 9.13 10^3/uL (3.29-11.43) 11/02/23 04:33 RBC 4.07 10^6/uL (3.85-5.65) 11/02/23 04:33 Hgb 12.80 g/dL (11.27-16.99) 11/02/23 04:33 Hct 40.6 % (36-47) 11/02/23 04:33 MCV 99.8 fl (85-98) H 11/02/23 04:33 MCH 31.4 pg (27-33) 11/02/23 04:33 MCHC 31.5 g/dL (30-55) 11/02/23 04:33 RDW 12.9 % (12.1-15.1) 11/02/23 04:33 Plt Count 194 10^3/cmm (157-399) 11/02/23 04:33 MPV 10.0 fL (7.4-10.4) 11/02/23 04:33 Neut % (Auto) 77.1 % 11/02/23 04:33 Lymph % (Auto) 10.2 % 11/02/23 04:33 [place] % (Auto) 6.6 % 11/02/23 04:33 Eos % (Auto) 5.4 % 11/02/23 04:33 Baso % (Auto) 0.3 % 11/02/23 04:33 Neut # (Auto) 7.04 10^3/uL (1.8-7.7) 11/02/23 04:33 Lymph # (Auto) 0.9 10^3/uL (0.8-4.8) 11/02/23 04:33 [place] # (Auto) 0.6 10^3/uL (0.2-0.9) 11/02/23 04:33 Eos # (Auto) 0.5 10^3/uL (0.0-0.8) 11/02/23 04:33 Baso # (Auto) 0.0 10^3/uL (0.0-0.1) 11/02/23 04:33 Nucleated RBC % (auto) 0 % 11/02/23 04:33 Nucleated RBCs # 0.0 /100WBC 11/02/23 04:33 ESR 47 mm/hr (0-15) H 11/02/23 04:33 Sodium 144 mmol/L (136-145) 11/02/23 04:33 Potassium 3.5 mmol/L (3.5-5.1) 11/02/23 04:33 Chloride 107 mmol/L (98-107) 11/02/23 04:33 Carbon Dioxide 24 mmol/L (22-29) 11/02/23 04:33 Anion Gap 16.5 (5-19) 11/02/23 04:33 BUN 20 mg/dL (6-20) 11/02/23 04:33 Creatinine 0.8 mg/dL (0.5-0.9) 11/02/23 04:33 GFR Calculation 73.7 mL/min (90-130) L 11/02/23 04:33 Glucose 126 mg/dL (65-115) H 11/02/23 04:33 Calculated Osmolality 302 mOsm/kg (285-295) H 11/02/23 04:33 Calcium 9.0 mg/dL (8.5-10.5) 11/02/23 04:33 Total Bilirubin 1.5 mg/dL (0.15-1.2) H 11/02/23 04:33 AST 35 U/L (0-32) H 11/02/23 04:33 ALT 25 U/L (0-33) 11/02/23 04:33 Alkaline Phosphatase 83 U/L (35-105) 11/02/23 04:33 C-Reactive Protein 231.1 mg/L (0.0-4.9) H 11/02/23 04:33 Total Protein 6.8 g/dL (6.6-8.7) 11/02/23 04:33 Albumin 3.7 g/dL (3.5-5.2) 11/02/23 04:33 Globulin 3.1 g/dL (1.3-4.6) 11/02/23 04:33 Procalcitonin 0.15 ng/mL (0-0.5) 11/02/23 04:33 Urine Color Dark yellow (Yellow) A 11/02/23 08:10 Urine Appearance Clear (CLEAR) 11/02/23 08:10 Urine pH 5 (5-7) 11/02/23 08:10 Ur Specific [place] 1.005 (1.005-1.030) 11/02/23 08:10 Urine Protein 1+ (Negative) H 11/02/23 08:10 Urine Glucose (UA) Norm (Normal) 11/02/23 08:10 Urine Ketones Negative (Negative) 11/02/23 08:10 Urine Blood 2+ (Negative) H 11/02/23 08:10 Urine Nitrate Negative (Negative) 11/02/23 08:10 Urine Bilirubin 1+ (Negative) H 11/02/23 08:10 Urine Urobilinogen 4 mg/dL (Negative) H 11/02/23 08:10 Ur Leukocyte Esterase 1+ (Negative) H 11/02/23 08:10 Urine RBC 0-4 /hpf (0-2) H 11/02/23 08:10 Urine WBC 5-10 /hpf (0-5) H 11/02/23 08:10 Ur Squamous Epith Cells 0-4 /hpf (0-5) H 11/02/23 08:10 Amorphous Sediment Not Reportable 11/02/23 08:10 Urine Bacteria Trace /hpf (NONE) 11/02/23 08:10 Discharge Plan Discharge Patient Disposition: Admitted As Inpatient Admit Provider: Kimo Talavera Clinical Impression: Post-op pain Condition: Stable Discharge Diet: Advance as tolerated Discharge Activity: Limit activity as instructed Coding Level of Care Code ED Single Wire Saw Operator for Chg Fwd Documented by User: Mona Hubbard MD 11/02/23 09:15 HPI - Back Pain/Injury General: Chief Complaint: Back Pain/Injury Stated Complaint: back pain Time Seen by Provider: 11/02/23 04:08 Related Data Home Medications Medication Instructions Recorded Confirmed cyclobenzaprine 10 mg tablet 10 mg PO TID PRN Muscle Spasm 07/25/19 11/06/23 zonisamide 100 mg capsule See Rx Instructions .Route .COMPLEX 11/06/21 11/06/23 hydrochlorothiazide 12.5 mg tablet 12.5 mg PO DAILY 08/12/22 11/06/23 simvastatin 10 mg tablet 10 mg PO DAILY 08/12/22 11/06/23 bisacodyl 5 mg tablet,delayed 10 mg PO DAILY PRN stool softener 08/17/23 11/06/23 release levothyroxine 125 mcg tablet 125 mcg PO DAILY 08/17/23 11/06/23 metformin 500 mg tablet 500 mg PO BID 11/02/23 11/06/23 ondansetron 4 mg disintegrating 4 mg PO Q8H PRN Nausea 11/02/23 11/06/23 tablet Previous Rx's Medication Instructions Recorded oxycodone-acetaminophen 10 mg-325 1 tab PO Q4H PRN pain 7 days #40 11/04/23 mg tablet tabs Allergies Allergy/AdvReac Type Severity Reaction Status Date / Time tape adhesive Allergy rash Uncoded 11/06/23 09:39 PFS ED PFSH: Medical History Bilateral leg pain Crescent disease History of colon polyps Diverticulitis Hypothyroidism Hypertension Surgical History History of total hysterectomy with bilateral salpingo-oophorectomy (BSO) History of bilateral mastectomy History of thyroidectomy, total History of tonsillectomy History of laparoscopic cholecystectomy History of 2 sections History of colonoscopy (07/26/19) repeat in 3 years History of esophagogastroduodenoscopy (EGD) Family History Family/Other Diabetes Denies family history of Anesthesia complication Bleeding disorder Social History Smoking and tobacco/nicotine status: never used tobacco/nicotine Second hand smoke exposure: No Alcohol intake: never Substance/Drug Use: never Adopted: No Caregiver/support person: No Lives independently: Yes Household members: none Housing: Apartment Marital status: Single Current occupational exposures/hazards: No Pets and animals: No Sexually active: No Do you think of yourself as: Straight/Heterosexual Current gender identity: Female Agata/Hinduism: Adventism Special agata needs: No Agree to transfusion: No Physical Exam Neuro: NELLY COMA SCALE: document GCS findings Nelly coma scale total score: 15 Course Vital Signs: Vital signs: Vital Signs Temperature 98.1 F 11/04/23 11:16 Pulse Rate 91 11/04/23 11:16 Respiratory Rate 18 11/04/23 11:16 Blood Pressure 119/82 11/04/23 11:16 Pulse Oximetry 93 11/04/23 11:16 Oxygen Delivery Me thod Room Air 11/04/23 11:16 Oxygen Flow Rate 2 11/03/23 04:00 MDM - Back Pain/Injury Medical Decision Making Patient with increasing back pain following lumbar decompression 3 days ago. White blood cell count is 9. Sed rate is 47, CRP is 231. She is hypertensive. She is afebrile. Other vitals are stable. She was experiencing so much pain, she had to be given multiple medications for CT scan. Currently she is calm. CT of the lumbar spine with IV contrast is performed, and is pending reading. Patient imaging here is normal she is continue pain I did speak to Dr. Banks will admit for postop pain. Labs 11/04/23 04:46 11/04/23 04:46 Radiology Impressions Lumbar Spine CT 11/02/23 04:13 IMPRESSION: 1. No acute fracture or malalignment. Expected postsurgical changes of recent right hemilaminectomies spanning L3-L5. No distinct intrathecal abscess or evidence of spinal canal narrowing on this modality. No appreciable soft tissue abscess. No evidence of osteomyelitis. 2. Moderate to severe lumbar spondylosis. 3. Left kidney inferior pole enhancing lesion is worrisome for malignancy (RCC) until proven otherwise. Right superior pole lesion may represent complex cyst. Recommend renal protocol CT or MRI for complete evaluation. Chest X-Ray 11/02/23 07:42 IMPRESSION: Continued obscuration of the left mid/lower lung, a component of which likely represents cardiac silhouette. Underlying subsegmental atelectasis or consolidation not excluded. Right lung is grossly clear. Laboratory Results WBC 9.13 10^3/uL (3.29-11.43) 11/02/23 04:33 RBC 4.07 10^6/uL (3.85-5.65) 11/02/23 04:33 Hgb 12.80 g/dL (11.27-16.99) 11/02/23 04:33 Hct 40.6 % (36-47) 11/02/23 04:33 MCV 99.8 fl (85-98) H 11/02/23 04:33 MCH 31.4 pg (27-33) 11/02/23 04:33 MCHC 31.5 g/dL (30-55) 11/02/23 04:33 RDW 12.9 % (12.1-15.1) 11/02/23 04:33 Plt Count 194 10^3/cmm (157-399) 11/02/23 04:33 MPV 10.0 fL (7.4-10.4) 11/02/23 04:33 Neut % (Auto) 77.1 % 11/02/23 04:33 Lymph % (Auto) 10.2 % 11/02/23 04:33 [place] % (Auto) 6.6 % 11/02/23 04:33 Eos % (Auto) 5.4 % 11/02/23 04:33 Baso % (Auto) 0.3 % 11/02/23 04:33 Neut # (Auto) 7.04 10^3/uL (1.8-7.7) 11/02/23 04:33 Lymph # (Auto) 0.9 10^3/uL (0.8-4.8) 11/02/23 04:33 [place] # (Auto) 0.6 10^3/uL (0.2-0.9) 11/02/23 04:33 Eos # (Auto) 0.5 10^3/uL (0.0-0.8) 11/02/23 04:33 Baso # (Auto) 0.0 10^3/uL (0.0-0.1) 11/02/23 04:33 Nucleated RBC % (auto) 0 % 11/02/23 04:33 Nucleated RBCs # 0.0 /100WBC 11/02/23 04:33 ESR 47 mm/hr (0-15) H 11/02/23 04:33 Sodium 144 mmol/L (136-145) 11/02/23 04:33 Potassium 3.5 mmol/L (3.5-5.1) 11/02/23 04:33 Chloride 107 mmol/L (98-107) 11/02/23 04:33 Carbon Dioxide 24 mmol/L (22-29) 11/02/23 04:33 Anion Gap 16.5 (5-19) 11/02/23 04:33 BUN 20 mg/dL (6-20) 11/02/23 04:33 Creatinine 0.8 mg/dL (0.5-0.9) 11/02/23 04:33 GFR Calculation 73.7 mL/min (90-130) L 11/02/23 04:33 Glucose 126 mg/dL (65-115) H 11/02/23 04:33 Calculated Osmolality 302 mOsm/kg (285-295) H 11/02/23 04:33 Calcium 9.0 mg/dL (8.5-10.5) 11/02/23 04:33 Total Bilirubin 1.5 mg/dL (0.15-1.2) H 11/02/23 04:33 AST 35 U/L (0-32) H 11/02/23 04:33 ALT 25 U/L (0-33) 11/02/23 04:33 Alkaline Phosphatase 83 U/L (35-105) 11/02/23 04:33 C-Reactive Protein 231.1 mg/L (0.0-4.9) H 11/02/23 04:33 Total Protein 6.8 g/dL (6.6-8.7) 11/02/23 04:33 Albumin 3.7 g/dL (3.5-5.2) 11/02/23 04:33 Globulin 3.1 g/dL (1.3-4.6) 11/02/23 04:33 Procalcitonin 0.15 ng/mL (0-0.5) 11/02/23 04:33 Urine Color Dark yellow (Yellow) A 11/02/23 08:10 Urine Appearance Clear (CLEAR) 11/02/23 08:10 Urine pH 5 (5-7) 11/02/23 08:10 Ur Specific [place] 1.005 (1.005-1.030) 11/02/23 08:10 Urine Protein 1+ (Negative) H 11/02/23 08:10 Urine Glucose (UA) Norm (Normal) 11/02/23 08:10 Urine Ketones Negative (Negative) 11/02/23 08:10 Urine Blood 2+ (Negative) H 11/02/23 08:10 Urine Nitrate Negative (Negative) 11/02/23 08:10 Urine Bilirubin 1+ (Negative) H 11/02/23 08:10 Urine Urobilinogen 4 mg/dL (Negative) H 11/02/23 08:10 Ur Leukocyte Esterase 1+ (Negative) H 11/02/23 08:10 Urine RBC 0-4 /hpf (0-2) H 11/02/23 08:10 Urine WBC 5-10 /hpf (0-5) H 11/02/23 08:10 Ur Squamous Epith Cells 0-4 /hpf (0-5) H 11/02/23 08:10 Amorphous Sediment Not Reportable 11/02/23 08:10 Urine Bacteria Trace /hpf (NONE) 11/02/23 08:10 All radiology interpretation(s) finalized by discharge Discharge Plan Discharge Patient Disposition: Admitted As Inpatient Admit Provider: Kimo Talavera Clinical Impression: Post-op pain Condition: Stable Discharge Diet: Advance as tolerated Discharge Activity: Limit activity as instructed Coding Level of Care Code ED Single Wire Saw Operator for Mayi Han
[2023-11-02 05:02] LABS: Alanine Aminotransferase 25 U/L (0-33); Albumin Level 3.7 g/dL (3.5-5.2); Alkaline Phosphatase 83 U/L (35-105); Anion Gap 16.5 (5-19); Aspartate Amino Transferase 35 U/L (0-32); Blood Urea Nitrogen 20 mg/dL (6-20); C Reactive Protein 231.1 mg/L (0.0-4.9); Carbon Dioxide 24 mmol/L (22-29); Chloride 107 mmol/L (98-107); Globulin 3.1 g/dL (1.3-4.6); Glomerular Filtration Rate 73.7 mL/min (90-130); Glucose 126 mg/dL (65-115); Osmolality Calculated 302 mOsm/kg (285-295); Potassium 3.5 mmol/L (3.5-5.1); Sodium 144 mmol/L (136-145); Total Bilirubin 1.5 mg/dL (0.15-1.2); Total Protein 6.8 g/dL (6.6-8.7)
[2023-11-02 05:08] LABS: Procalcitonin 0.15 ng/mL (0-0.5)
[2023-11-02] MEDS: haloperidol inj 5 mg/mL INJ 1 mL IVP (05:08)
[2023-11-02] MEDS: ketamine 100 mg/mL Inj 5 mL 80 MG IVP (05:22)
[2023-11-02] MEDS: iohexol 350 mg/mL 500 mL Btl (per mL) IV (05:43)
--- NOTE | 2023-11-02 07:42 | XRR_ITS ---
PROCEDURE INFORMATION: Exam: XR Chest Exam date and time: 11/02/2023 7:49 AM Age: 58 years old Clinical indication: Other: Back pain TECHNIQUE: Imaging protocol: Radiologic exam of the chest. Views: 1 view. COMPARISON: CR XR chest 1V portable [id number] 03/06/2023 1:37 PM FINDINGS: Lungs: Continued obscuration of the left mid/lower lung, a component of which likely represents cardiac silhouette. Underlying subsegmental atelectasis or consolidation not excluded. Right lung is grossly clear. Cardiomediastinal silhouette is unchanged. No acute osseous or soft tissue abnormality. Low lung volumes. Pleural spaces: Unremarkable. No pleural effusion. No pneumothorax. Heart/Mediastinum: Unremarkable. No cardiomegaly. Bones/joints: Unremarkable. XR/XR chest 1V portable [id number] IMPRESSION: Continued obscuration of the left mid/lower lung, a component of which likely represents cardiac silhouette. Underlying subsegmental atelectasis or consolidation not excluded. Right lung is grossly clear.
[2023-11-02 08:32] LABS: Charge for UA Resulting for Rev
[2023-11-02 08:45] LABS: Urine Appearance Clear (CLEAR); Urine Color Dark Yellow (Yellow)
--- NOTE | 2023-11-02 08:45 | P.CONIM_ITS ---
Providers/Reason For Consult 2 Consulting Physician/Specialty*: Angelo Guna MD, hospitalist Reason for Consult*: Medical management Requesting Physician: Dr. Hubbard/Sadaf Primary Care Provider: Amilcar Delvalle MD History of Present Illness History of Present Illness Tamika Caicedo is a 58 year old female presenting to the emergency department with unmanageable pain. 3 days ago, on October 29 she underwent an L3-S1 laminectomy and partial facetectomy. She says since then she has been having significant pain, with some paresthesias down her legs right greater than left, particularly the outside of the right leg. She has reported some constipation, and reports she has some dribbling of urine she believes is new. She has not had any vomiting, diarrhea, blood in stool, shortness of breath. She has had a cough but it is not productive. In the emergency department she received some Haldol, Dilaudid, ketamine. She also received some Zofran. Mild headache. Review of Systems 2 General: Reports: 10 or more systems reviewed and unremarkable except in HPI and below Card: Denies: chest pain Resp: Reports: non-productive cough; Denies: dyspnea GI: Denies: abdominal pain Medications/Allergies Home Medications Medication Instructions Recorded Confirmed Last Taken Type cyclobenzaprine 10 mg tablet 10 mg PO TID PRN Muscle Spasm 07/25/19 11/02/23 10/28/23 History zonisamide 100 mg capsule See Rx Instructions .Route .COMPLEX 11/06/21 11/02/23 10/28/23 History hydrochlorothiazide 12.5 mg tablet 12.5 mg PO DAILY 08/12/22 11/02/23 11/01/23 History simvastatin 10 mg tablet 10 mg PO DAILY 08/12/22 11/02/23 11/01/23 History bisacodyl 5 mg tablet,delayed 10 mg PO DAILY PRN stool softener 08/17/23 11/02/23 10/28/23 History release levothyroxine 125 mcg tablet 125 mcg PO DAILY 08/17/23 11/02/23 11/01/23 History hydrocodone 5 mg-acetaminophen 325 1 - 2 tab PO .Q4-6H PRN Pain 11/02/23 11/02/23 Unknown History mg tablet metformin 500 mg tablet 500 mg PO BID 11/02/23 11/02/23 11/01/23 History ondansetron 4 mg disintegrating 4 mg PO Q8H PRN Nausea 11/02/23 11/02/23 Unknown History tablet Allergies Allergy/AdvReac Type Severity Reaction Status Date / Time tape adhesive Allergy rash Uncoded 11/02/23 04:00 PFSH Acute 2 PFSH: Medical History Bilateral leg pain Clemente disease History of colon polyps Diverticulitis Hypothyroidism Hypertension Surgical History History of total hysterectomy with bilateral salpingo-oophorectomy (BSO) History of bilateral mastectomy History of thyroidectomy, total History of tonsillectomy History of laparoscopic cholecystectomy History of 2 sections History of colonoscopy (07/26/19) repeat in 3 years History of esophagogastroduodenoscopy (EGD) Family History Family/Other Diabetes Denies family history of Anesthesia complication Bleeding disorder Social History Smoking and tobacco/nicotine status: never used tobacco/nicotine Second hand smoke exposure: No Alcohol intake: never Substance/Drug Use: never Adopted: No Caregiver/support person: No Lives independently: Yes Household members: none Housing: Apartment Marital status: Single Current occupational exposures/hazards: No Pets and animals: No Sexually active: No Do you think of yourself as: Straight/Heterosexual Current gender identity: Female Agata/Holiness: Zoroastrianism Special agata needs: No Agree to transfusion: No Vitals/I&O/Wt Last Vital Signs Temp 98.0 F 11/02/23 03:56 Pulse 102 H 11/02/23 08:30 Resp 18 11/02/23 05:08 BP 141/96 11/02/23 08:30 Pulse Ox 99 11/02/23 08:30 O2 Del Method Nasal Cannula 11/02/23 08:30 O2 Flow Rate 2 11/02/23 05:08 Physical Exam 2 Narrative: General exam is a white female, reporting pain HEENT: Atraumatic normocephalic. Oropharynx clear Neck is supple no lymphadenopathy thyromegaly Cardiovascular regular rate and rhythm, heart sounds distant, no murmur Lungs clear Abdomen is soft, positive bowel sounds. No obvious organomegaly exams deferred Extremities no cyanosis clubbing or edema, cap refill brisk Skin no rash Neuro no obvious focal deficits. She does have sensation to both lower extremities, and movement. Back with intact dressing without drainage Data 11/02/23 04:33 11/02/23 04:33 Other Labs: ESR 47 LFTs normal with exception of total bili of 1.5 and AST of 35 CRP 231 Procalcitonin 0.15 Urinalysis pending Chest x-ray obscuration left lower lobe secondary to cardiac silhouette and breast implants Lumbar CT with no fracture or malalignment, expected postsurgical changes are noted. Moderate to severe lumbar spondylosis. Left inferior kidney pole enhancing lesion, which needs renal protocol CT for follow-up or MRI. A&P Assessment and plan (1) Post-op pain: Patient presents with postoperative pain. May need nursing facility placement. Multiple medications including Dilaudid, ketamine, Haldol, given in the emergency department without relief Defer pain treatment to orthopedic spine surgery (2) Elevated blood pressure reading: Elevated blood pressure is likely result of pain Continue her hydrochlorothiazide Reevaluate, and if blood pressure does not go down with treatment for pain will address Plan UA equivocal for UTI. Culture. Initiate cefdinir Diabetes mellitus. Sliding scale insulin. Consistent carb diet. Hypothyroidism, continue thyroid hormone Multiple other medical problems as outlined in past medical history Thank you for this consultation. Will follow along with you. Consult Attestations 2 Medical Necessity Statement: As per primary Diagnoses Post-op pain G89.18 Elevated blood pressure reading R03.0 Time Spent (min) 55
[2023-11-02 08:46] LABS: Bilirubin Urine 1+ (Negative); Blood Urine 2+ (Negative); Glucose Urine UA Norm (Normal); Ketones Urine Negative (Negative); Leukocyte Esterase Urine 1+ (Negative); Nitrate Urine Negative (Negative); Protein Urine 1+ (Negative); Specific Gravity, Urine 1.005 (1.005-1.030); UA Manual Slide Review YES; Urobilinogen Urine 4 mg/dL (Negative); pH Urine 5 (5-7)
[2023-11-02] MEDS: HYDROmorphone 1 mg/mL INJ 1 mL 0.5 MG IVP (09:04)
[2023-11-02 09:06] LABS: RBC Urine 0-4 /hpf (0-2); Squamous Epithelial Cell Urine 0-4 /hpf (0-5)
[2023-11-02 09:07] LABS: Add Urine Culture? No; Bacteria Urine TRACE /hpf
[2023-11-02] MEDS: cefdinir 300 MG CAPSULE PO ×2 (11:32→18:23)
[2023-11-02] MEDS: cyclobenzaprine 10 mg Tablet PO ×2 (11:35→20:48)
--- NOTE | 2023-11-02 15:08 | P.HP_ITS ---
Providers/Chief Complaint 2 Admitting Physician: Kimo Talavera DO Primary Care Provider: Amilcar Delvalle MD Chief Complaint: back pain History of Present Illness Tamika Caicedo is a 58 year old female patient was sleeping when I arrived in the room. Per history patient had surgery on Thursday the and has been having manageable pain since. She is states she can cannot walk due to the pain. It is admitted for pain control Review of Systems 2 Narrative: Patient is currently sleeping Medications/Allergies Home Medications Medication Instructions Recorded Confirmed Last Taken Type cyclobenzaprine 10 mg tablet 10 mg PO TID PRN Muscle Spasm 07/25/19 11/02/23 10/28/23 History zonisamide 100 mg capsule See Rx Instructions .Route .COMPLEX 11/06/21 11/02/23 10/28/23 History hydrochlorothiazide 12.5 mg tablet 12.5 mg PO DAILY 08/12/22 11/02/23 11/01/23 History simvastatin 10 mg tablet 10 mg PO DAILY 08/12/22 11/02/23 11/01/23 History bisacodyl 5 mg tablet,delayed 10 mg PO DAILY PRN stool softener 08/17/23 11/02/23 10/28/23 History release levothyroxine 125 mcg tablet 125 mcg PO DAILY 08/17/23 11/02/23 11/01/23 History hydrocodone 5 mg-acetaminophen 325 1 - 2 tab PO .Q4-6H PRN Pain 11/02/23 11/02/23 Unknown History mg tablet metformin 500 mg tablet 500 mg PO BID 11/02/23 11/02/23 11/01/23 History ondansetron 4 mg disintegrating 4 mg PO Q8H PRN Nausea 11/02/23 11/02/23 Unknown History tablet Allergies Allergy/AdvReac Type Severity Reaction Status Date / Time tape adhesive Allergy rash Uncoded 11/02/23 04:00 PFSH Acute 2 PFSH: Medical History Bilateral leg pain [place] disease History of colon polyps Diverticulitis Hypothyroidism Hypertension Surgical History History of total hysterectomy with bilateral salpingo-oophorectomy (BSO) History of bilateral mastectomy History of thyroidectomy, total History of tonsillectomy History of laparoscopic cholecystectomy History of 2 sections History of colonoscopy (07/26/19) repeat in 3 years History of esophagogastroduodenoscopy (EGD) Family History Family/Other Diabetes Denies family history of Anesthesia complication Bleeding disorder Social History Smoking and tobacco/nicotine status: never used tobacco/nicotine Second hand smoke exposure: No Alcohol intake: never Substance/Drug Use: never Adopted: No Caregiver/support person: No Lives independently: Yes Household members: none Housing: Apartment Marital status: Single Current occupational exposures/hazards: No Pets and animals: No Sexually active: No Do you think of yourself as: Straight/Heterosexual Current gender identity: Female Agata/Holiness: Adventist Special agata needs: No Agree to transfusion: No Vitals/I&O/Wt Last Vital Signs Temp 98.2 F 11/02/23 11:30 Pulse 91 11/02/23 11:30 Resp 16 11/02/23 11:30 BP 123/85 11/02/23 11:30 Pulse Ox 98 11/02/23 11:30 O2 Del Method Nasal Cannula 11/02/23 11:30 O2 Flow Rate 2 11/02/23 11:30 11/02/23 11/02/23 11/02/23 06:59 14:59 22:59 Output Total 250 / 250 Balance -250 / -250 Weight last 48 hrs Weight 276 lb 4 oz Physical Exam 2 Narrative: Patient is currently sleeping Data 11/02/23 04:33 11/02/23 04:33 A&P Assessment and plan (1) Status post lumbar laminectomy: Patient is currently sleeping. Will give pain control and likely involve senior case manager for possible placement in [facility]. Attestations 2 Medical Necessity Statement*: Pain control Coding Level of Care Code Acute Code for Chg Fwd Diagnoses Status post lumbar laminectomy Z98.890
[2023-11-02] MEDS: morphine 4 mg/mL SDV 1 mL 2 MG IVP (16:42)
[2023-11-02] MEDS: dexamethasone 10 mg/mL INJ IVP ×2 (16:43→20:48)
[2023-11-02] MEDS: oxyCODONE-APAP 10-325 mg Tablet PO ×2 (18:23→22:00)
[2023-11-02] MEDS: insulin lispro 100 unit/1 mL SUBCUT (21:59)
[2023-11-03] VITALS (10 sets, daily range): BP systolic 104–159; BP diastolic 68–93; PULSE 86–96; RESP 16–22; TEMP 36.4–36.9; O2SAT 90–95
[2023-11-03] MEDS: dexamethasone 10 mg/mL INJ IVP ×4 (03:09→20:30)
[2023-11-03] MEDS: oxyCODONE-APAP 10-325 mg Tablet PO ×4 (03:10→20:30)
[2023-11-03] MEDS: cefdinir 300 MG CAPSULE PO ×2 (08:15→17:41)
[2023-11-03] MEDS: insulin lispro 100 unit/1 mL SUBCUT ×3 (08:15→21:06)
[2023-11-03] MEDS: atorvastatin 40 mg Tablet PO (08:15)
[2023-11-03] MEDS: enoxaparin 40 mg/0.4 mL Syringe SUBCUT (08:15)
[2023-11-03] MEDS: levothyroxine 125 mcg Tablet PO (08:16)
[2023-11-03] MEDS: hydroCHLOROthiazide 25 mg Tablet 12.5 MG PO (08:16)
[2023-11-03] MEDS: cyclobenzaprine 10 mg Tablet PO (08:16)
--- NOTE | 2023-11-03 08:23 | P.PN_ITS ---
Subjective 2 Subjective: Patient sitting in bed was sleeping when I walked in the room. Patient stated that her left leg feels a lot better but the right leg still hurts. At this point will see how she does when she gets of physical therapy. Vitals/I&O/Wt Last Vital Signs Temp 97.5 F L 11/03/23 07:39 Pulse 86 11/03/23 07:39 Resp 18 11/03/23 08:15 BP 105/68 11/03/23 07:39 Pulse Ox 94 11/03/23 07:39 O2 Del Method Nasal Cannula 11/03/23 07:39 O2 Flow Rate 2 11/03/23 04:00 11/02/23 11/03/23 11/03/23 22:59 06:59 14:59 Intake Total 118 / 118 Balance 118 / -132 Weight last 48 hrs Weight 275 lb Weight 276 lb 4 oz Physical Exam 2 Narrative: 5 5 strength bilateral lower extremities Data 11/02/23 04:33 11/02/23 04:33 A&P Assessment and plan (1) Status post lumbar laminectomy: Will attempt to get up with physical therapy if she does a regimen go home. If not we will likely discharge her to a detention. Attestations 2 Medical Necessity Statement*: Pain control Coding Level of Care Code Acute Code for Chg Fwd Diagnoses Status post lumbar laminectomy Z98.890
--- NOTE | 2023-11-03 08:49 | P.PN_ITS ---
Subjective 2 Subjective: Still in pain. Distressed about her situation regarding possible nursing facility rehab. Worried about losing her job, taking care of her mother at home. Medications: Reviewed: Yes Vitals/I&O/Wt Last Vital Signs Temp 97.5 F L 11/03/23 07:39 Pulse 86 11/03/23 07:39 Resp 18 11/03/23 08:15 BP 105/68 11/03/23 07:39 Pulse Ox 94 11/03/23 07:39 O2 Del Method Nasal Cannula 11/03/23 07:39 O2 Flow Rate 2 11/03/23 04:00 11/02/23 11/03/23 11/03/23 22:59 06:59 14:59 Intake Total 118 / 118 Balance 118 / -132 Weight last 48 hrs Weight 124.738 kg Weight 125.305 kg Physical Exam 2 Narrative: General exam is a white female, reporting pain Neck is supple no lymphadenopathy thyromegaly Cardiovascular regular rate and rhythm, heart sounds distant, no murmur Lungs clear Abdomen is soft, positive bowel sounds. No obvious organomegaly Extremities no cyanosis clubbing or edema, cap refill brisk Data 11/02/23 04:33 11/02/23 04:33 A&P Assessment and plan (1) Post-op pain: Patient presents with postoperative pain. May need nursing facility placement. Multiple medications including Dilaudid, ketamine, Haldol, given in the emergency department without relief Defer pain treatment to orthopedic spine surgery Currently on oxycodone as needed, morphine as needed Add DVT prophylaxis, SCDs, physical therapy consult (2) Elevated blood pressure reading: Elevated blood pressure is likely result of pain Continue her hydrochlorothiazide Blood pressure better today. No adjustment in medications as needed. Plan UA equivocal for UTI. Culture pending. Continue cefdinir Diabetes mellitus. Sliding scale insulin. Consistent carb diet. Blood sugar 126 this morning Hypothyroidism, continue thyroid hormone Multiple other medical problems as outlined in past medical history Thank you for this consultation. Will follow along with you. Repeat labs tomorrow Attestations 2 Medical Necessity Statement*: As per primary Diagnoses Post-op pain G89.18 Elevated blood pressure reading R03.0 Time Spent (min) 20
--- NOTE | 2023-11-03 09:15 | PC.CHAP ---
Pastoral Care Encounter/Spiritual Assessment Type of Contact [] Declined health insurance sales agent visit [] Patient/Family/Request visit [] Outpatient visit [] Follow-up visit [] Physician referral [] Code/Alert [x] Routine visit [] Staff referral [] Actively dying [] Patient sleeping [] Family support [] [] Out of room [] Palliative care [] [] Receiving care in room [] Pre-surgical visit [] Trauma [] Long length of stay [] ICU visit [] Other: Relational/Emotional Strength [] Patient feels connected with others/family/visitors/staff [x] Distress [x] Loneliness/isolation [] Abandonment Spirituality of Patient [x] Person of Agata [] Attends Rastafari of their Agata [x] Believes in Prayer [] Reads Bible or Lutheran materials [] There are Spiritual issues to be addressed Strip Presser Interventions [x] Prayer [x] Active listening [x] Non-anxious presence [x] Spiritual/emotional support [] Crisis/trauma care [] Spiritual counseling [] Bereavement support [] Provided bereavement packet [] Provided Bible/devotional materials [] Provided toy/stuffed animal, coloring book to patient or family member [] Provided Communion [] Anointing/[place] [] Salvation [x] Completed spiritual assessment [] Other: Impact on Illness or Injury [] Angry [] Fearful [x] Anxious [] Often cries [] Exhaustion [x] Unable to work [] Unable to attend christianity [] Unable to walk/stand [] Unable to read [] Unable to drive [] Unable to eat/drink [] Unable to sleep [] Unable to be with family [] Patient intubated [] Other: Summary Time spent with patient 5 min
[2023-11-03 17:01] LABS: SARS Covid-2 Antigen negative (Negative)
[2023-11-03 18:23] LABS: Glucose Point of Care 116 mg/dL (70-110)
--- NOTE | 2023-11-03 18:28 | PC.NURSE ---
SHIFT SUMMARY Patient has done well today. This nurse encouraged patient to sit up as much as she could tolerate today. Patient was up for all meals and used the bedside commode. Pain controlled with oral pain medication. Surgical dressing changed today. Incision is asymptomatic. Patient has had good intake and output. Currently resting in bed.
[2023-11-03 21:03] LABS: Glucose Point of Care 153 mg/dL (70-110)
[2023-11-04] VITALS: BP 105/68; PULSE 85; RESP 18; TEMP 37; O2SAT 92
[2023-11-04] MEDS: dexamethasone 10 mg/mL INJ IVP ×2 (02:42→08:29)
[2023-11-04 04:00] VITALS: BP 117/74; PULSE 88; RESP 17; TEMP 36.7; O2SAT 93
[2023-11-04 04:54] VITALS: RESP 18
[2023-11-04] MEDS: oxyCODONE-APAP 10-325 mg Tablet PO ×2 (04:54→09:10)
[2023-11-04 05:30] LABS: Basophils % 0.1 %; Hematocrit 38.2 % (36-47); Lymphocytes # 0.7 10^3/uL (0.8-4.8); Mean Corpuscular HGB Conc 31.7 g/dL (30-55); Mean Corpuscular Hemoglobin 30.8 pg (27-33); Mean Corpuscular Volume 97.2 fl (85-98); Mean Platelet Volume 10.3 fL (7.4-10.4); Monocytes # 0.2 10^3/uL (0.2-0.9); Monocytes % 1.8 %; Neutrophils # 10.08 10^3/uL (1.8-7.7); Neutrophils % 91.4 %; Nucleated Red Blood Cells % 0 %; Platelet Count 230 10^3/cmm (157-399); Red Blood Count 3.93 10^6/uL (3.85-5.65); Red Cell Distribution Width 12.4 % (12.1-15.1); White Blood Count 11.03 10^3/uL (3.29-11.43)
[2023-11-04 06:02] LABS: Anion Gap 15.9 (5-19); Blood Urea Nitrogen 22 mg/dL (6-20); Calcium 8.9 mg/dL (8.5-10.5); Carbon Dioxide 23 mmol/L (22-29); Chloride 104 mmol/L (98-107); Glomerular Filtration Rate 102.7 mL/min (90-130); Glucose 148 mg/dL (65-115); Osmolality Calculated 294 mOsm/kg (285-295); Potassium 3.9 mmol/L (3.5-5.1); Sodium 139 mmol/L (136-145)
[2023-11-04 06:23] LABS: Glucose Point of Care 137 mg/dL (70-110)
[2023-11-04 07:36] VITALS: BP 133/83; PULSE 89; RESP 18; TEMP 36.6; O2SAT 94
[2023-11-04] MEDS: atorvastatin 40 mg Tablet PO (08:29)
[2023-11-04] MEDS: levothyroxine 125 mcg Tablet PO (08:29)
[2023-11-04] MEDS: cefdinir 300 MG CAPSULE PO (08:29)
[2023-11-04] MEDS: hydroCHLOROthiazide 25 mg Tablet 12.5 MG PO (08:29)
[2023-11-04] MEDS: enoxaparin 40 mg/0.4 mL Syringe SUBCUT (08:29)
--- NOTE | 2023-11-04 08:34 | P.PN_ITS ---
Subjective 2 Subjective: Reports she believes she is in more pain than she should be for surgery. She wants to go home, but knows the pain is an issue and may need rehabilitation. Medications: Reviewed: Yes Vitals/I&O/Wt Last Vital Signs Temp 97.8 F 11/04/23 07:36 Pulse 89 11/04/23 07:36 Resp 18 11/04/23 07:36 BP 133/83 11/04/23 07:36 Pulse Ox 94 11/04/23 07:36 O2 Del Method Room Air 11/04/23 07:36 O2 Flow Rate 2 11/03/23 04:00 11/03/23 11/04/23 11/04/23 22:59 06:59 14:59 Intake Total 360 / 360 Output Total 500 / 500 Balance -500 / 220 360 / 360 Weight last 48 hrs Weight 126.184 kg Weight 124.738 kg Weight 125.305 kg Physical Exam 2 Narrative: General exam is a white female, reporting pain Neck is supple no lymphadenopathy thyromegaly Cardiovascular regular rate and rhythm, heart sounds distant, no murmur Lungs clear Back demonstrates dressing, clean and dry Abdomen is soft, positive bowel sounds. No obvious organomegaly Extremities no cyanosis clubbing or edema, cap refill brisk Data 11/04/23 04:46 11/04/23 04:46 Micro: Microbiology 11/03/23 02:00 Urine Culture - Preliminary Urine,Voided A&P Assessment and plan (1) Post-op pain: Patient presents with postoperative pain. May need nursing facility placement. Defer pain treatment to orthopedic spine surgery Currently on oxycodone as needed, morphine as needed Add DVT prophylaxis, SCDs, physical therapy consult (2) Elevated blood pressure reading: Elevated blood pressure is likely result of pain Continue her hydrochlorothiazide Blood pressure better today. No adjustment in medications as needed. Plan UA equivocal for UTI. Culture pending. Continue cefdinir. Initial culture results no growth, pending final Diabetes mellitus. Sliding scale insulin. Consistent carb diet. Blood sugar 126 this morning Hypothyroidism, continue thyroid hormone Multiple other medical problems as outlined in past medical history Thank you for this consultation. Will follow along with you. Attestations 2 Medical Necessity Statement*: As per primary Diagnoses Post-op pain G89.18 Elevated blood pressure reading R03.0 Time Spent (min) 16
[2023-11-04 09:10] VITALS: RESP 18
[2023-11-04] MEDS: docusate sodium 100 mg Capsule PO (10:34)
[2023-11-04] MEDS: sennosides 8.6 mg Tablet PO (10:34)
[2023-11-04 10:38] LABS: Glucose Point of Care 165 mg/dL (70-110)
--- NOTE | 2023-11-04 10:45 | P.DS_ITS ---
Discharge Providers Date of Admission: 11/02/23 10:23 Date of Discharge: November 04, 2023 Attending Provider at Admission: Kimo Hendrickson DO Attending Provider at Discharge: Kimo Hendrickson DO Primary Care Provider: Amilcar Delvalle MD Diagnoses at Discharge Discharge Diagnosis (1) Post-op pain: Status: Acute (2) Elevated blood pressure reading: Status: Acute Reason for Visit Reason for Visit: back pain Physical Exam 2 Narrative: Patient sitting in chair states she still having as much pain as she was when she came in however she seems to be comfortable sitting in the chair. She did not do with the therapy and therefore we will send her to a halfway Discharge Data Studies Completed and Pending Completed Studies During Hospitalization Category Date Time Status CT lumbar spine w con [id number] Stat Cat Scan 11/02/23 04:13 Completed CXRP [XR chest 1V portable [id number]] Stat Exams 11/02/23 07:42 Completed Pending at discharge Category Date Time Status Urine Culture Routine Lab 11/03/23 02:00 Results Radiology Impressions Lumbar Spine CT 11/02/23 04:13 IMPRESSION: 1. No acute fracture or malalignment. Expected postsurgical changes of recent right hemilaminectomies spanning L3-L5. No distinct intrathecal abscess or evidence of spinal canal narrowing on this modality. No appreciable soft tissue abscess. No evidence of osteomyelitis. 2. Moderate to severe lumbar spondylosis. 3. Left kidney inferior pole enhancing lesion is worrisome for malignancy (RCC) until proven otherwise. Right superior pole lesion may represent complex cyst. Recommend renal protocol CT or MRI for complete evaluation. Chest X-Ray 11/02/23 07:42 IMPRESSION: Continued obscuration of the left mid/lower lung, a component of which likely represents cardiac silhouette. Underlying subsegmental atelectasis or consolidation not excluded. Right lung is grossly clear. Laboratory Results WBC 11.03 10^3/uL (3.29-11.43) 11/04/23 04:46 RBC 3.93 10^6/uL (3.85-5.65) 11/04/23 04:46 Hgb 12.10 g/dL (11.27-16.99) 11/04/23 04:46 Hct 38.2 % (36-47) 11/04/23 04:46 MCV 97.2 fl (85-98) 11/04/23 04:46 MCH 30.8 pg (27-33) 11/04/23 04:46 MCHC 31.7 g/dL (30-55) 11/04/23 04:46 RDW 12.4 % (12.1-15.1) 11/04/23 04:46 Plt Count 230 10^3/cmm (157-399) 11/04/23 04:46 MPV 10.3 fL (7.4-10.4) 11/04/23 04:46 Neut % (Auto) 91.4 % 11/04/23 04:46 Lymph % (Auto) 6.0 % 11/04/23 04:46 [place] % (Auto) 1.8 % 11/04/23 04:46 Eos % (Auto) 0.0 % 11/04/23 04:46 Baso % (Auto) 0.1 % 11/04/23 04:46 Neut # (Auto) 10.08 10^3/uL (1.8-7.7) H 11/04/23 04:46 Lymph # (Auto) 0.7 10^3/uL (0.8-4.8) L 11/04/23 04:46 [place] # (Auto) 0.2 10^3/uL (0.2-0.9) 11/04/23 04:46 Eos # (Auto) 0.0 10^3/uL (0.0-0.8) 11/04/23 04:46 Baso # (Auto) 0.0 10^3/uL (0.0-0.1) 11/04/23 04:46 Nucleated RBC % (auto) 0 % 11/04/23 04:46 Nucleated RBCs # 0.0 /100WBC 11/04/23 04:46 ESR 47 mm/hr (0-15) H 11/02/23 04:33 Sodium 139 mmol/L (136-145) 11/04/23 04:46 Potassium 3.9 mmol/L (3.5-5.1) 11/04/23 04:46 Chloride 104 mmol/L (98-107) 11/04/23 04:46 Carbon Dioxide 23 mmol/L (22-29) 11/04/23 04:46 Anion Gap 15.9 (5-19) 11/04/23 04:46 BUN 22 mg/dL (6-20) H 11/04/23 04:46 Creatinine 0.6 mg/dL (0.5-0.9) 11/04/23 04:46 GFR Calculation 102.7 mL/min (90-130) 11/04/23 04:46 Glucose 148 mg/dL (65-115) H 11/04/23 04:46 POC Glucose 165 mg/dL (70-110) H 11/04/23 10:35 Calculated Osmolality 294 mOsm/kg (285-295) 11/04/23 04:46 Calcium 8.9 mg/dL (8.5-10.5) 11/04/23 04:46 Total Bilirubin 1.5 mg/dL (0.15-1.2) H 11/02/23 04:33 AST 35 U/L (0-32) H 11/02/23 04:33 ALT 25 U/L (0-33) 11/02/23 04:33 Alkaline Phosphatase 83 U/L (35-105) 11/02/23 04:33 C-Reactive Protein 231.1 mg/L (0.0-4.9) H 11/02/23 04:33 Total Protein 6.8 g/dL (6.6-8.7) 11/02/23 04:33 Albumin 3.7 g/dL (3.5-5.2) 11/02/23 04:33 Globulin 3.1 g/dL (1.3-4.6) 11/02/23 04:33 Procalcitonin 0.15 ng/mL (0-0.5) 11/02/23 04:33 Urine Color Dark yellow (Yellow) A 11/02/23 08:10 Urine Appearance Clear (CLEAR) 11/02/23 08:10 Urine pH 5 (5-7) 11/02/23 08:10 Ur Specific [place] 1.005 (1.005-1.030) 11/02/23 08:10 Urine Protein 1+ (Negative) H 11/02/23 08:10 Urine Glucose (UA) Norm (Normal) 11/02/23 08:10 Urine Ketones Negative (Negative) 11/02/23 08:10 Urine Blood 2+ (Negative) H 11/02/23 08:10 Urine Nitrate Negative (Negative) 11/02/23 08:10 Urine Bilirubin 1+ (Negative) H 11/02/23 08:10 Urine Urobilinogen 4 mg/dL (Negative) H 11/02/23 08:10 Ur Leukocyte Esterase 1+ (Negative) H 11/02/23 08:10 Urine RBC 0-4 /hpf (0-2) H 11/02/23 08:10 Urine WBC 5-10 /hpf (0-5) H 11/02/23 08:10 Ur Squamous Epith Cells 0-4 /hpf (0-5) H 11/02/23 08:10 Amorphous Sediment Not Reportable 11/02/23 08:10 Urine Bacteria Trace /hpf (NONE) 11/02/23 08:10 SARS-CoV-2 Ag (Rapid) negative (Negative) 11/03/23 16:30 Vitals Last Vital Signs Temp 97.8 F 11/04/23 07:36 Pulse 89 11/04/23 07:36 Resp 18 11/04/23 09:10 BP 133/83 11/04/23 07:36 Pulse Ox 94 11/04/23 07:36 O2 Del Method Room Air 11/04/23 07:36 O2 Flow Rate 2 11/03/23 04:00 Discharge Plan Discharge Patient Disposition: Xfer SNF Condition: Stable Prescriptions: New oxycodone-acetaminophen 10-325 mg tablet 1 tab PO Q4H PRN (Reason: pain) 7 Days Qty: 40 0RF Continued zonisamide 100 mg capsule See Rx Instructions .ROUTE .COMPLEX Rx Instructions: Take 1 to 2 caps by mouth every 24 hours as directed. simvastatin 10 mg tablet 10 mg PO DAILY hydrochlorothiazide 12.5 mg tablet 12.5 mg PO DAILY levothyroxine 125 mcg tablet 125 mcg PO DAILY bisacodyl 5 mg tablet,delayed release (DR/EC) 10 mg PO DAILY PRN (Reason: stool softener) cyclobenzaprine 10 mg tablet 10 mg PO TID PRN (Reason: Muscle Spasm) metformin 500 mg tablet 500 mg PO BID ondansetron 4 mg tablet,disintegrating 4 mg PO Q8H PRN (Reason: Nausea) Discontinued hydrocodone-acetaminophen 5-325 mg tablet 1 - 2 tab PO .Q4-6H PRN (Reason: Pain) Discharge Orders: Discharge Order (Routine); Ordered 11/04/23 Ordered By: Kimo Hendrickson Referrals: [facility] [Outside] Kimo Hendrickson DO [Physician] - 11/06/23 9:45 am (13:00APPOINTMENT WITH DR HENDRICKSON NOVEMBER 11 AT 13:00) Amilcar Delvalle MD [Primary Care Provider] - Discharge Diet: Advance as tolerated Discharge Activity: Limit activity as instructed Patient Instructions: Oxycodone/Acetaminophen (By mouth), Opioid Safety Activity Restrictions/Additional Instructions: Thank you for [facility] for your care! The following is a list of instructions, from your provider, to follow upon your discharge to ensure you have the optimal recovery from your recent injury orsurgery. Follow-up care is a rodrigues part of your treatment and safety. Be sure to make and go to all appointments, and call your doctor if you are having problems. If you do not already have a follow-up appointment made, call Dr. Hendrickson office in the next 1-3 days to make follow up appointment for 2 weeks at [phone]. It is also a good idea to know your test results and keep a list of the medicines you take. Medications will be prescribed for you at your provider's discretion. These medications are to be used as instructed; if they are taken more often that prescribed they will not be refilled early and in most cases will not be refilled at all. > When a refill is needed,you should contact linden smith 2-3 business days before your prescription runs out. Medications will NOT be refilled by recreation attendant providers after hours! > Many pain medications contain Tylenol (Acetaminophen). Do not consume more than 4,000 mg of Tylenol per day in total with any combination ofmedications. > Pain medications can cause constipation. Please use an over the counter stool softener as directed, while taking pain medications. Consulty our local pharmacist with questions or recommendations on stool softeners. If constipation persists, contact our office or your primary care provider. > While under our care,you are not to receive pain medications or other controlled substances from any other provider unless our office is notified and approves. Any attempts to do so will result in refusal to prescribe any further pain medications and possible dismissal from our practice. ? Your wound and/or dressing should remain clean and dry for 2 days after surgery. On postoperative day 2 (48 hours after your surgery) the dressing (if present) should be removed and it is okay to shower and get the incision wet. Pad dry afterwards. No further dressing should be required from that point on. Do not put any creams or ointments on theincision > It is normal for there to be a small amount of discharge (bloody or blood tinged) present from a surgical wound for the first 1-3days. > The wound should be examined twice a day for signs of infection. Mild redness or bruising is to be expected but indications that an infection maybe starting would include; An increase in redness, swelling, or discharge, a foul odor present around the incision, and/or a fever greater than 101 ?F ? Showering is permitted, however we ask that you do not take a bath, sit in a whirlpool / Jacuzzi, or go swimming for 1 month. For only the first 2 days after surgery, lt wilt be necessary for you to cover your wound/dressing w ith plastic and tape to keep it dry. ? Walking is essential for the healing process after surgery. We would like you to slowly advance your walking. This should be done on relatively flat clear ground (inside or out) or can be done on a treadmill. Remember this goal does not have to happen all at once, slowly increase your distance and duration. This can be broken into more more than one walk per day as tolerated. Patients who walk as directed after surgery rarely require Physical Therapy. In the unlikely event this issue arises your provider will direct hospital staff to make the appropriate arrangements. ? No lifting over 5 pounds {a gallon of milk) or bending/twisting until further notice. Each of these activities places an unnecessary amount of stress onto the body and can impede the delicate healing process. > Instead of bending at the waist, keep your back straight and bend at the knees. > Instead of twisting your torso, keep your back straight and turn your entire body with your feet. ? You may sleep in any position which makes you comfortable. Many patients find comfort sleeping in a reclining chair. It is not abnormal to have difficulty sleeping for the first several weeks following your surgery. We recommend trying Benadry! or Tylenol PM as directed to help with your sleeping difficulties. Both medications are over the counter and available withoutprescription. ? NO SMOKING!!! Smoking dramatically increases the probability of developing postoperative wound infections. ? Common complaints after lumbar and/or thoracic spine surgery include, but are not limited to: numbness and/or tingling in the legs, pain around the incision and surrounding tissues, muscle spasms, or stiffness of the middle to low back. Contact our office if these symptoms persist or if an acute change occurs. ? No driving for the first 3-5days, and not while taking narcotics until seen at your follow-up appointment and cleared. There are no restrictions for riding on short trips, however if you take a longer trip, arrangements should be made to make regular stops to get out of the vehicle and stretch . ? Swelling is an unfortunate event that will take place with any surgery and is the primary source of your postoperative discomfort. While walking and regular approved activities helps control inflammation, there are additional steps you can take to minimizeswelling. > Place ice over the surgical site and surrounding tissue for twenty minutes, followed by applying a low/medium heat (heating pad) for an additional twenty minutes every 1-2 hours as needed for painrelief. > You may use of over the counter anti-inflammatory medications (Ibuprofen, Motrin, Aleve, Advil, etc) as directed on the package label. These types of medicines wm significantly reduce the amount of discomfort you experience after surgery from swelling. It should be noted that if you have and allergy to any of these medications, or a history of ulcers or kidney disease you should consult you primary care provider prior to starting these medications. Discharge Attestations Time Spent in Discharge Care*: less than 30 min Quality Metrics Clinical Quality Measures [ No reported AMI, CVA or VTE this stay] Coding Level of Care Code Acute Code for Chg Fwd Diagnoses Post-op pain G89.18 Elevated blood pressure reading R03.0
[2023-11-04 11:16] VITALS: BP 119/82; PULSE 91; RESP 18; TEMP 36.7; O2SAT 93
[2023-11-04] MEDS: insulin lispro 100 unit/1 mL SUBCUT (11:34)
== END 2023-11-04 13:09 | disposition skilled nursing facility (03) | DRG 948 ==
LOC: ER 09:15 → MEDSURG 10:23
PROVIDERS: Emergency Medicine; Internal Medicine; Admitting Provider Orthopaedic Surgery; Emergency Provider Emergency Medicine; PCP Internal Medicine; Visit Provider Orthopaedic Surgery
DX: G89.18 Other acute postprocedural pain (principal); I10 Essential (primary) hypertension; E89.0 Postprocedural hypothyroidism; E11.9 Type 2 diabetes mellitus without complications; Z11.52 Encounter for screening for COVID-19; Z79.84 Long term (current) use of oral hypoglycemic drugs; Z86.010 Personal history of colon polyps; Z90.13 Acquired absence of bilateral breasts and nipples; Z98.890 Other specified postprocedural states
CPT/HCPCS: 36415; 36416; 71045; 72132; 80048; 80053; 81003; 81015; 82962; 84145; 85025; 85651; 86140; 87086; 87426; 96372; 96374; 96375; 96376; 97116; 97161; 97167; 97530; 97535; 99285; A9281; J1100; J1170; J1630; J1650; J1815; J2270; J2405; J3490; Q9967

== ENCOUNTER → 2023-12-06 11:09 | Outpatient (BNVA) | payer BC, MEDICAID, SELFPAY | PROVIDERS: PCP Internal Medicine; Visit Provider Family Medicine | DX: R30.0 Dysuria (principal) | CPT/HCPCS: 81000 ==

== ENCOUNTER 2024-05-08 19:27 | Emergency (ER) | payer BC, MEDICAID, SELFPAY ==
[2024-05-08 19:29] VITALS: BP 125/77; PULSE 108; RESP 18; TEMP 37.2; O2SAT 93; BMI 47.5
--- NOTE | 2024-05-08 19:47 | W.ED.GENADLT ---
HPI - General Adult General: Chief complaint: Upper Respiratory Infection Stated complaint: flu symptoms Time Seen by Provider: 05/08/24 19:36 Source: patient Mode of arrival: ambulatory Limitations: no limitations History of Present Illness: 59-year-old female presents to the emergency department complaining of not feeling well. Patient states she has been sleeping a lot, not eating, having pain in her legs/restless, low grade temps, nausea. Patient states she had an kidney tumor ablation surgery done on March 15 2024 as well as a ureter stent and since then she has been having intermittent low grade temps and the aches in her legs and back. She has a follow-up regarding her ablation surgery on May 12, 2024. Patient denies any palpitations, constipation, diarrhea, vomiting. 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 No other complaints at this time. Onset (ago): day(s) Location: head and neck Radiation: neck Severity: moderate Quality: aching Relieving factors: none Associated symptoms: Reports decreased appetite, dyspnea, fevers/chills, headache(s) and short of breath; Deny chest pain, confusion, nausea, rash, palpitations or vomiting Related Data Home Medications ?Medication ?Instructions ?Recorded ?Confirmed cyclobenzaprine 10 mg tablet 10 mg PO TID PRN Muscle Spasm 07/25/19 12/29/23 zonisamide 100 mg capsule See Rx Instructions .Route .COMPLEX 11/06/21 12/29/23 hydrochlorothiazide 12.5 mg tablet 12.5 mg PO DAILY 08/12/22 12/29/23 simvastatin 10 mg tablet 10 mg PO DAILY 08/12/22 12/29/23 bisacodyl 5 mg tablet,delayed 10 mg PO DAILY PRN stool softener 08/17/23 12/29/23 release levothyroxine 125 mcg tablet 125 mcg PO DAILY 08/17/23 12/29/23 metformin 500 mg tablet 500 mg PO BID 11/02/23 12/29/23 ondansetron 4 mg disintegrating 4 mg PO Q8H PRN Nausea 11/02/23 12/29/23 tablet Previous Rx's ?Medication ?Instructions ?Recorded sulfamethoxazole 800 1 tab PO BID 7 days #14 tabs 05/08/24 mg-trimethoprim 160 mg tablet (Bactrim DS) Allergies Allergy/AdvReac Type Severity Reaction Status Date / Time adhesive tape Allergy ALGY-Rash Verified 01/26/24 15:48 Review of Systems Const: Reports: fever(s) (low grade temp; highest 100.6), body aches, change in appetite and fatigue Eyes: Denies: change in vision or blurry vision ENMT: Denies: throat pain, odynophagia, ear or mastoid pain, nasal discharge or nasal congestion Card: Denies: chest pain or palpitations Resp: Reports: dyspnea; Denies: productive cough GI: Denies: abdominal pain, nausea, vomiting or change in bowel habits : Reports: flank pain; Denies: difficulty voiding, dysuria, urinary frequency or urinary urgency Musc: Denies: neck pain, back pain, extremity pain, extremity swelling or joint swelling Skin/Breast: Denies: rash Neuro: Reports: headache(s); Denies: numbness in extremities, weakness in extremities, sensory changes or confusion PFSH ED PFSH: Medical History Bilateral leg pain Clemente disease History of colon polyps Diverticulitis Hypothyroidism Hypertension Surgical History History of total hysterectomy with bilateral salpingo-oophorectomy (BSO) History of bilateral mastectomy History of thyroidectomy, total History of tonsillectomy History of laparoscopic cholecystectomy History of 2 sections History of colonoscopy (07/26/19) repeat in 3 years History of esophagogastroduodenoscopy (EGD) Family History Family/Other Diabetes Denies family history of Anesthesia complication Bleeding disorder Social History Smoking and tobacco/nicotine status: unknown if used tobacco/nicotine Second hand smoke exposure: No Alcohol intake: never Substance/Drug Use: never Adopted: No Caregiver/support person: No Lives independently: Yes Household members: none Housing: Apartment Marital status: Single Current occupational exposures/hazards: No Pets and animals: No Sexually active: No Do you think of yourself as: Straight/Heterosexual Current gender identity: Female Agata/Sikhism: Yazidi Special agata needs: No Agree to transfusion: No Physical Exam Const: COMMON NORMALS: no acute distress, patient oriented x3, no limitations and well nourished GENERAL APPEARANCE: cooperative and comfortable NUTRITIONAL APPEARANCE: obese ORIENTATION/CONSCIOUSNESS: Yes awake, Yes oriented to person, Yes oriented to place and Yes oriented to time HENMT: COMMON NORMALS: normocephalic and atraumatic HEAD & SCALP: normal to inspection, normocephalic and atraumatic Eye: COMMON NORMALS: no scleral icterus Resp: COMMON NORMALS: normal respiratory effort and clear to auscultation bilaterally AUSCULTATION: clear to auscultation bilaterally Cardio: COMMON NORMALS: regular rate and regular rhythm RATE: regular rate RHYTHM: regular rhythm GI: COMMON NORMALS: Normal to inspection, nondistended, normoactive bowel sounds present, Soft to palpation, non-tender and no masses PALPATION: Yes Soft to palpation : BLADDER/KIDNEY EXAM: Yes CVA tenderness on the left Back/Pelvis: GENERAL BACK: Yes CVA tenderness Extremity: COMMON NORMALS: capillary refill normal, no clubbing, cyanosis or edema, no calf tenderness and no pedal edema GENERAL: Yes normal exam except as noted Neuro: COMMON NORMALS: patient oriented x3, moves all extremities, no focal motor deficits and no sensory deficits noted SENSORIUM/ORIENTATION: Yes oriented to person, Yes oriented to place and Yes oriented to time Skin: COMMON NORMALS: no rashes or lesions noted GENERAL SKIN EXAM: no rashes or lesions noted Course Vital Signs: Vital signs: Vital Signs Temperature 98.9 F 05/08/24 19:29 Pulse Rate 94 05/08/24 22:41 Respiratory Rate 14 05/08/24 22:41 Blood Pressure 121/77 05/08/24 22:41 Pulse Oximetry 96 05/08/24 22:41 Oxygen Delivery Me thod Room Air 05/08/24 22:41 [facility] - General Adult Medical Decision Making Patient here for multiple medical complaints. She arrives mildly tachycardic but this resolved during her stay without intervention. She was complaining of low-grade temps, nausea, and flank pain although she has had the flank pain since her kidney biopsy and cryoablation. Patient's blood work shows a normal white count. Her chemistry panel is overall unremarkable. She did have some isolated hyperbilirubinemia at 1.9. This was elevated back in October. She has no complaints of right upper quadrant abdominal pain. Patient's urine analysis suspicious for infection with positive nitrates, 3+ leukocyte esterase, too numerous to count WBCs, and 4+ bacteria. She does have an indwelling ureter stent. Discussed case with Dr. Dorsey, [facility] urology who is recommending oral Bactrim and following up with her urologist Dr. Hernandez by calling their office tomorrow. Continue current plan for follow-up on as scheduled. Patient was given IV Rocephin prior to discharge. Return to ED precautions discussed. Medical Records I reviewed the patient's medical records. Lab Data I reviewed the patient's lab results. 05/08/24 20:13 05/08/24 20:13 Radiology Impressions Chest X-Ray 05/08/24 19:48 IMPRESSION: Mild interval increase in aeration of left mid/lower lung, however with continued partial obscuration of cardiomediastinal silhouette. Persistent subsegmental atelectasis or consolidation within the left mid/lower lung not excluded. Abdomen/Pelvis CT 05/08/24 20:47 IMPRESSION: 1. Interval placement of left nephroureteral stent. There is mild left hydronephrosis and perinephric fat stranding. Previously seen enhancing left lower pole renal lesion appears hypodense with adjacent fat stranding. Constellation of findings may be related to patient's prior ablation/nephroureteral stent placement, however ascending urinary tract infection or similar infectious process is not excluded. 2. Bilateral nonobstructing punctate calculi and simple renal cysts. 3. Circumferential bladder wall thickening, which may relate to recent instrumentation/stent placement, however cystitis may have similar appearance. 4. Colonic diverticulosis. 5. Additional stable chronic findings as above. Laboratory Results WBC 11.10 10^3/uL (3.29-11.43) 05/08/24 20:13 RBC 4.01 10^6/uL (3.85-5.65) 05/08/24 20:13 Hgb 12.60 g/dL (11.27-16.99) 05/08/24 20:13 Hct 41.2 % (36-47) 05/08/24 20:13 MCV 102.7 fl (85-98) H 05/08/24 20: MCH 31.4 pg (27-33) 05/08/24 20:13 MCHC 30.6 g/dL (30-55) 05/08/24 20:13 RDW 13.6 % (12.1-15.1) 05/08/24 20:13 Plt Count 184 10^3/cmm (157-399) 05/08/24 20:13 MPV 9.7 fL (7.4-10.4) 05/08/24 20:13 Neut % (Auto) 86.8 % 05/08/24 20:13 Lymph % (Auto) 5.1 % 05/08/24 20:13 [place] % (Auto) 6.9 % 05/08/24 20:13 Eos % (Auto) 0.6 % 05/08/24 20:13 Baso % (Auto) 0.3 % 05/08/24 20:13 Neut # (Auto) 9.63 10^3/uL (1.8-7.7) H 05/08/24 20:13 Lymph # (Auto) 0.6 10^3/uL (0.8-4.8) L 05/08/24 20:13 [place] # (Auto) 0.8 10^3/uL (0.2-0.9) 05/08/24 20:13 Eos # (Auto) 0.1 10^3/uL (0.0-0.8) 05/08/24 20:13 Baso # (Auto) 0.0 10^3/uL (0.0-0.1) 05/08/24 20:13 Nucleated RBC % (auto) 0 % 05/08/24 20:13 Nucleated RBCs # 0.0 /100WBC 05/08/24 20:13 Sodium 137 mmol/L (136-145) 05/08/24 20:13 Potassium 3.8 mmol/L (3.5-5.1) 05/08/24 20:13 Chloride 106 mmol/L (98-107) 05/08/24 20:13 Carbon Dioxide 20 mmol/L (22-29) L 05/08/24 20:13 Anion Gap 14.8 (5-19) 05/08/24 20:13 BUN 16 mg/dL (6-20) 05/08/24 20:13 Creatinine 1.0 mg/dL (0.5-0.9) H 05/08/24 20:13 GFR Calculation 56.7 mL/min (90-130) L 05/08/24 20:13 Glucose 127 mg/dL (65-115) H 05/08/24 20:13 Calculated Osmolality 287 mOsm/kg (285-295) 05/08/24 20:13 Lactic Acid 0.8 mmol/L (0.5-2.2) 05/08/24 20:13 Calcium 9.2 mg/dL (8.5-10.5) 05/08/24 20:13 Total Bilirubin 1.9 mg/dL (0.15-1.2) H 05/08/24 20:13 AST 22 U/L (0-32) 05/08/24 20:13 ALT 11 U/L (0-33) 05/08/24 20:13 Alkaline Phosphatase 89 U/L (35-105) 05/08/24 20:13 Total Protein 6.5 g/dL (6.6-8.7) L 05/08/24 20:13 Albumin 3.5 g/dL (3.5-5.2) 05/08/24 20:13 Globulin 3.0 g/dL (1.3-4.6) 05/08/24 20:13 Urine Color Yellow (Yellow) 05/08/24 20:20 Urine Appearance Turbid (CLEAR) A 05/08/24 20:20 Urine pH 6.5 (5-7) 05/08/24 20:20 Ur Specific [place] 1.011 (1.005-1.030) 05/08/24 20:20 Urine Protein 1+ (Negative) A 05/08/24 20: Urine Glucose (UA) Negative (Normal) 05/08/24 20:20 Urine Ketones Trace (Negative) 05/08/24 20:20 Urine Blood 1+ (Negative) A 05/08/24 20:20 Urine Nitrate Positive (Negative) A 05/08/24 20:20 Urine Bilirubin Negative (Negative) 05/08/24 20: Urine Urobilinogen 2.0 mg/dL (Negative) H 05/08/24 20:20 Ur Leukocyte Esterase 3+ (Negative) A 05/08/24 20:20 Urine RBC 0-4 /hpf (0-2) H 05/08/24 20:20 Urine WBC Too numerous to cnt /hpf (0-5) H 05/08/24 20:20 Ur Squamous Epith Cells 5-10 /hpf (0-5) H 05/08/24 20:20 Amorphous Sediment Not Reportable 05/08/24 20:20 Urine Bacteria 4+ /hpf (NONE) H 05/08/24 20:20 Influenza A (PCR) Negative (Negative) 05/08/24 19:56 Influenza Type B (PCR) Negative (Negative) 05/08/24 19:56 RSV (PCR) Negative (Negative) 05/08/24 19:56 SARS-CoV-2 (PCR) Negative (Negative) 05/08/24 19:56 All radiology interpretation(s) finalized by discharge Discharge Plan Discharge Patient Disposition: Home Clinical Impression: History of ureter stent UTI (urinary tract infection) Qualifiers: Urinary tract infection type: acute cystitis Hematuria presence: without hematuria Qualified Code(s): N30.00 - Acute cystitis without hematuria Condition: Stable Prescriptions: New sulfamethoxazole-trimethoprim [Bactrim DS] 800-160 mg tablet 1 tab PO BID 7 Days Qty: 14 0RF Discontinued sulfamethoxazole-trimethoprim [Bactrim DS] 800-160 mg tablet 1 tab PO BID Qty: 20 0RF No Action zonisamide 100 mg capsule See Rx Instructions .ROUTE .COMPLEX Rx Instructions: Take 1 to 2 caps by mouth every 24 hours as directed. simvastatin 10 mg tablet 10 mg PO DAILY hydrochlorothiazide 12.5 mg tablet 12.5 mg PO DAILY levothyroxine 125 mcg tablet 125 mcg PO DAILY bisacodyl 5 mg tablet,delayed release (DR/EC) 10 mg PO DAILY PRN (Reason: stool softener) cyclobenzaprine 10 mg tablet 10 mg PO TID PRN (Reason: Muscle Spasm) metformin 500 mg tablet 500 mg PO BID ondansetron 4 mg tablet,disintegrating 4 mg PO Q8H PRN (Reason: Nausea) Discharge Orders: Discharge ED (Routine); Ordered 05/08/24 Ordered By: Елена Rios Referrals: Amilcar Delvalle MD [Primary Care Provider] - Activity Restrictions/Additional Instructions: As we discussed, your urine analysis showed evidence for infection. We are placing you on antibiotics while we await culture results. We discussed with [facility] urology who recommended placing you on Bactrim. This has been called into your [place] pharmacy. Please fill this in the morning and start immediately. As we discussed, you need to contact Dr. Hernandez, your urologist through [facility] in the morning for further instructions. Please continue plan for current follow-up with our office on . You need to return to the emergency department for any further concerns you may have, severe back pain, repetitive episodes of vomiting, fevers, inability to hold down your antibiotics, generally feeling worse or unwell, or any other concerns you may have. I hope you begin to feel better soon. Print Language: Uruguayan Coding Level of Care Code ED Fitter Tacker for Mayi Han
--- NOTE | 2024-05-08 19:48 | XRR_ITS ---
PROCEDURE INFORMATION: Exam: XR Chest Exam date and time: 05/08/2024 7:51 PM Age: 59 years old Clinical indication: Cough and shortness of breath; Cough; SOB TECHNIQUE: Imaging protocol: Radiologic exam of the chest. Views: 1 view. COMPARISON: CR XR chest 1V portable [id number] 11/02/2023 7:49 AM FINDINGS: Lungs: Mild interval increase in aeration of left mid/lower lung. Persistent subsegmental atelectasis versus consolidation within left mid and lower lobe not excluded. Right lung remains clear. Low lung volumes. Pleural spaces: Unremarkable. No pleural effusion. No pneumothorax. Heart/Mediastinum: Cardiomediastinal silhouette remains mildly obscured. Bones/joints: Unremarkable. XR/XR chest 1V portable [id number] IMPRESSION: Mild interval increase in aeration of left mid/lower lung, however with continued partial obscuration of cardiomediastinal silhouette. Persistent subsegmental atelectasis or consolidation within the left mid/lower lung not excluded.
[2024-05-08 20:21] LABS: Basophils % 0.3 %; Eosinophils # 0.1 10^3/uL (0.0-0.8); Eosinophils % 0.6 %; Hematocrit 41.2 % (36-47); Lymphocytes # 0.6 10^3/uL (0.8-4.8); Lymphocytes % 5.1 %; Mean Corpuscular HGB Conc 30.6 g/dL (30-55); Mean Corpuscular Hemoglobin 31.4 pg (27-33); Mean Corpuscular Volume 102.7 fl (85-98); Mean Platelet Volume 9.7 fL (7.4-10.4); Monocytes # 0.8 10^3/uL (0.2-0.9); Monocytes % 6.9 %; Neutrophils # 9.63 10^3/uL (1.8-7.7); Neutrophils % 86.8 %; Nucleated Red Blood Cells % 0 %; Platelet Count 184 10^3/cmm (157-399); Red Blood Count 4.01 10^6/uL (3.85-5.65); Red Cell Distribution Width 13.6 % (12.1-15.1)
[2024-05-08 20:30] LABS: Bilirubin Urine Negative (Negative); Blood Urine 1+ (Negative); Glucose Urine UA Negative (Normal); Ketones Urine Trace (Negative); Leukocyte Esterase Urine 3+ (Negative); Nitrate Urine Positive (Negative); Protein Urine 1+ (Negative); Specific Gravity, Urine 1.011 (1.005-1.030); Urine Appearance Turbid (CLEAR); Urine Color Yellow (Yellow); pH Urine 6.5 (5-7)
[2024-05-08 20:39] LABS: Alanine Aminotransferase 11 U/L (0-33); Albumin Level 3.5 g/dL (3.5-5.2); Alkaline Phosphatase 89 U/L (35-105); Anion Gap 14.8 (5-19); Aspartate Amino Transferase 22 U/L (0-32); Blood Urea Nitrogen 16 mg/dL (6-20); Calcium 9.2 mg/dL (8.5-10.5); Carbon Dioxide 20 mmol/L (22-29); Chloride 106 mmol/L (98-107); Creatinine Clr Calc Pharmacy 73.8546; Glomerular Filtration Rate 56.7 mL/min (90-130); Glucose 127 mg/dL (65-115); Osmolality Calculated 287 mOsm/kg (285-295); Potassium 3.8 mmol/L (3.5-5.1); Sodium 137 mmol/L (136-145); Total Bilirubin 1.9 mg/dL (0.15-1.2); Total Protein 6.5 g/dL (6.6-8.7)
[2024-05-08 20:40] LABS: Add Urine Culture? Yes; Add Urine Microscopic? YES; Bacteria Urine 4+ /hpf; RBC Urine 0-4 /hpf (0-2); WBC Urine TOO NUMEROUS TO CNT /hpf (0-5)
--- NOTE | 2024-05-08 20:47 | CTR_ITS ---
PROCEDURE INFORMATION: Exam: CT Abdomen And Pelvis With Contrast Exam date and time: 05/08/2024 9:15 PM Age: 59 years old Clinical indication: Fever and nausea and other: UTI; Prior surgery; Surgery date: 6+ months; Surgery type: Bilat mastectomy with augmentation. Gb. Renal ablation. Laminectomy. Total hysterectomy. Left ureteral stent. Fever with nausea. UTI. ; Additional info: HX of L ureter/kidney stent? Kidney ablation; UTI TECHNIQUE: Imaging protocol: Computed tomography of the abdomen and pelvis with contrast. Radiation optimization: All CT scans at this facility use at least one of these dose optimization techniques: automated exposure control; mA and/or kV adjustment per patient size (includes targeted exams where dose is matched to clinical indication); or iterative reconstruction. Contrast material: OMNI 350; Contrast volume: 80 ml; Contrast route: INTRAVENOUS (IV); COMPARISON: CT abdomen pelvis w con* [id number] 02/18/2019 1:57 PM RADIATION DOSE METRICS: Total DLP (mGy-cm): 1382.26 FINDINGS: Lungs: Unremarkable. Liver: Normal. No mass. Gallbladder and biliary ducts: Status post cholecystectomy. Pancreas: Normal. No ductal dilation. Spleen: Normal. No splenomegaly. Adrenal glands: Marked fatty replacement of bilateral adrenal glands. Kidneys and ureters: Redemonstrated mildly atrophic irregular appearance of right kidney with multiple nonobstructing stones and simple cysts measuring up to 1.9 cm. Right ureter is nondilated. Left nephroureteral stent is present. Irregular left lower pole renal lesion with diffuse adjacent fat stranding. Stable additional subcentimeter hypodensities in nonobstructing stones within left kidney. Stomach and bowel: Colonic diverticulosis. Appendix: Appendix is unremarkable. Intraperitoneal space: Large calcification anterior right upper abdomen with several calcifications within left abdominal mesentery. Vasculature: Unremarkable. No abdominal aortic aneurysm. Lymph nodes: Unremarkable. No enlarged lymph nodes. Urinary bladder: Unremarkable as visualized. Reproductive: Hysterectomy. Bones/joints: No acute fracture. Moderate severe lumbar spondylosis. Schmorl's nodules noted in the T10 and T11 vertebral bodies, stable. Stable chronic appearance of L1 compression deformity. Soft tissues: Small fat containing umbilical hernia. CT/CT abdomen pelvis w con* [id number] IMPRESSION: 1. Interval placement of left nephroureteral stent. There is mild left hydronephrosis and perinephric fat stranding. Previously seen enhancing left lower pole renal lesion appears hypodense with adjacent fat stranding. Constellation of findings may be related to patient's prior ablation/nephroureteral stent placement, however ascending urinary tract infection or similar infectious process is not excluded. 2. Bilateral nonobstructing punctate calculi and simple renal cysts. 3. Circumferential bladder wall thickening, which may relate to recent instrumentation/stent placement, however cystitis may have similar appearance. 4. Colonic diverticulosis. 5. Additional stable chronic findings as above.
[2024-05-08 21:00] LABS: Influenza A NEGATIVE (Negative); Influenza B NEGATIVE (Negative); Respiratory Syncytial Virus Ce NEGATIVE (Negative); SARS-CoV-2 PCR NEGATIVE (Negative)
[2024-05-08] MEDS: iohexol 350 mg/mL 500 mL Btl (per mL) IV (21:18)
[2024-05-08 21:19] LABS: Lactic Sepsis W/Reflex 0.8 mmol/L (0.5-2.2)
[2024-05-08 22:41] VITALS: BP 121/77; PULSE 94; RESP 14; O2SAT 96
[2024-05-08] MEDS: cefTRIAXone 1,000 mg SDV 1000 MG IVP (22:59)
[2024-05-08 23:27] VITALS: BP 141/68; PULSE 90; RESP 16; O2SAT 96
== END 2024-05-08 23:24 | disposition home or self-care (01) ==
PROVIDERS: Emergency Provider Physician Assistant; PCP Internal Medicine
DX: N30.00 Acute cystitis without hematuria (principal); Z11.52 Encounter for screening for COVID-19; Z79.84 Long term (current) use of oral hypoglycemic drugs; I10 Essential (primary) hypertension
CPT/HCPCS: 36415; 71045; 74177; 80053; 81001; 83605; 85025; 87077; 87086; 87186; 87637; 96374; 99285; J0696